=== PATIENT | male | born 1940 | race Caucasian/White ===

== ENCOUNTER 2018-02-24 13:53 | Inpatient (IN) ==
[2018-02-24] MEDS ORDERED: DEXTROSE 50% 25 GM/50 ML VIAL IV PRN (15:44)
[2018-02-24] MEDS ORDERED: GLUCAGON 1 MG VIAL IM PRN (15:44)
[2018-02-24 16:21] LABS: Basophils # 0.1 10*3/uL (0.0-0.2); Basophils % 1.3 % (0.0-0.8); Eosinophils # 0.5 10*3/uL (0.0-0.87); Eosinophils % 10.6 % (0.00-10.9); Hematocrit 31.4 VOL% (42.0-52.0); Hemoglobin 10.2 GM/DL (14.0-18.0); Immature Granulocytes % 0.7 %; Immature Granulocytes Absolute 0.03 #; Lymphocytes % 22.3 % (21.2-54.2); Mean Corpuscular HGB Conc 32.5 GM/DL (32-36); Mean Corpuscular Hemoglobin 30 PG (27-34); Mean Corpuscular Volume 91.3 FL (87-102); Mean Platelet Volume 9.6 FL (9.6-12.0); Monocytes # 0.5 10*3/uL (0.11-0.8); Monocytes % 10.2 % (1.7-12.7); Neutrophils # 2.5 10*3/uL (1.4-7.4); Neutrophils % 54.9 % (38.7-73.9); Platelet Count 152 T/CUMM (130-400); Red Blood Count 3.44 MC/CUMM (3.8-5.5); Red Cell Distribution Width 22.4 % (9.3-17.3); White Blood Count 4.5 T/CUMM (4-12)
[2018-02-24] MEDS ORDERED: CALCIUM CARBONATE CHEW 500 MG TABLET PO ONE ×2 (16:41→19:30)
[2018-02-24 16:58] LABS: Albumin 2.6 G/DL (3.4-5.0); Bilirubin,Total 0.4 MG/DL (0.2-1.0); Calcium 6.3 MG/DL (8.5-10.1); Potassium 4.4 MMOL/L (3.5-5.1); Total Protein 5.5 G/DL (6.4-8.3)
[2018-02-24 17:02] LABS: Anisocytosis 1+; Elliptocytes Few; Microcytosis Slight; Platelet Estimate Adequate
[2018-02-24] MEDS: PIPERACILLIN/TAZOBACTAM 3,375 MG in SODIUM CHLORIDE 0.9% 100 ML IV SCH ×2 (17:45→23:21)
[2018-02-24] MEDS: INSULIN REGULAR 100 UNIT/ML SUBCUT SCH (19:03)
[2018-02-25] MEDS: INSULIN REGULAR 100 UNIT/ML SUBCUT SCH ×4 (00:05→18:42)
[2018-02-25 06:34] LABS: Basophils # 0.1 10*3/uL (0.0-0.2); Basophils % 1.2 % (0.0-0.8); Eosinophils # 0.5 10*3/uL (0.0-0.87); Eosinophils % 12.4 % (0.00-10.9); Hematocrit 36.9 VOL% (42.0-52.0); Hemoglobin 11.9 GM/DL (14.0-18.0); Immature Granulocytes % 0.7 %; Immature Granulocytes Absolute 0.03 #; Lymphocytes # 1.2 10*3/uL (1.4-4.0); Lymphocytes % 27.1 % (21.2-54.2); Mean Corpuscular HGB Conc 32.2 GM/DL (32-36); Mean Corpuscular Hemoglobin 30 PG (27-34); Mean Corpuscular Volume 92.5 FL (87-102); Monocytes # 0.3 10*3/uL (0.11-0.8); Monocytes % 7.7 % (1.7-12.7); Neutrophils # 2.2 10*3/uL (1.4-7.4); Neutrophils % 50.9 % (38.7-73.9); Platelet Count 182 T/CUMM (130-400); Red Blood Count 3.99 MC/CUMM (3.8-5.5); Red Cell Distribution Width 22.7 % (9.3-17.3); White Blood Count 4.3 T/CUMM (4-12)
[2018-02-25] MEDS ORDERED: LIDOCAINE 1% 20 ML VIAL ONE (06:40)
[2018-02-25 07:00] LABS: Band Neutrophils 1 % (0-10); Eosinophils 18 % (0-10); Lymphocytes 24 % (20-55); Segmented Neutrophils 53 % (50-85); Total Cells Counted 100
[2018-02-25 07:01] LABS: Ovalocytes Slight; Platelet Estimate Normal
[2018-02-25 07:10] LABS: Albumin 2.7 G/DL (3.4-5.0); Bilirubin,Total 1.1 MG/DL (0.2-1.0); Calcium 6.9 MG/DL (8.5-10.1); Osmolality,Calculated 289.4 MOS/KG (273-304); Potassium 4.3 MMOL/L (3.5-5.1); Total Protein 5.7 G/DL (6.4-8.3)
[2018-02-25] MEDS ORDERED: DIPHENOXYLATE/ATROPINE 2.5-0.025 MG TABLET PO PRN (07:42)
[2018-02-25] MEDS ORDERED: PROPOFOL 200 MG/20 ML VIAL IV ONE (07:54)
[2018-02-25] MEDS ORDERED: MIDAZOLAM 2 MG/2 ML VIAL ONE (07:54)
[2018-02-25] MEDS ORDERED: fentaNYL 100 MCG/2 ML VIAL ONE (07:55)
[2018-02-25] MEDS ORDERED: DEXTROSE 50% 25 GM/50 ML VIAL IV PRN (08:15)
[2018-02-25] MEDS ORDERED: GLUCAGON 1 MG VIAL IM PRN (08:15)
[2018-02-25] MEDS ORDERED: CABOZANTINIB S MALATE 40 MG PO SCH (09:00)
[2018-02-25] MEDS ORDERED: COLCHICINE 0.6 MG TABLET PO PRN (09:00)
[2018-02-25] MEDS: PIPERACILLIN/TAZOBACTAM 3,375 MG in SODIUM CHLORIDE 0.9% 100 ML IV SCH ×2 (09:24→18:33)
[2018-02-25] MEDS: FUROSEMIDE 40 MG TABLET PO SCH (09:30)
[2018-02-25] MEDS: PANTOPRAZOLE 40 MG TABLET PO SCH (09:30)
[2018-02-25] MEDS: LEVOTHYROXINE 100 MCG TABLET PO SCH (09:30)
[2018-02-25] MEDS: TAMSULOSIN 0.4 MG CAPSULE PO SCH (09:31)
[2018-02-25] MEDS: CARVEDILOL 3.125 MG TABLET PO SCH ×2 (09:31→16:28)
[2018-02-25] MEDS: amLODIPine 5 MG TABLET PO SCH (09:31)
[2018-02-25] MEDS: CALCIUM CARBONATE CHEW 500 MG TABLET PO SCH ×2 (09:46→20:12)
[2018-02-25] MEDS ORDERED: MAGNESIUM SULF RIDER 4 GM in PREMIX 1 EACH IV PRN (11:46)
[2018-02-25] MEDS ORDERED: MAGNESIUM SULF RIDER 2 GM in PREMIX 1 EACH IV PRN (11:46)
[2018-02-25] MEDS: TRESIBA FLEX TOUCH PEN SUBCUT SCH (20:18)
[2018-02-25] MEDS ORDERED: TRESIBA FLEX TOUCH PEN SUBCUT SCH (21:00)
[2018-02-26] MEDS: PIPERACILLIN/TAZOBACTAM 3,375 MG in SODIUM CHLORIDE 0.9% 100 ML IV SCH ×3 (03:01→17:57)
[2018-02-26] MEDS: INSULIN REGULAR 100 UNIT/ML SUBCUT SCH ×4 (03:10→18:05)
[2018-02-26 06:04] LABS: Basophils # 0.1 10*3/uL (0.0-0.2); Basophils % 1.3 % (0.0-0.8); Eosinophils # 0.4 10*3/uL (0.0-0.87); Eosinophils % 11.6 % (0.00-10.9); Hematocrit 31.6 VOL% (42.0-52.0); Hemoglobin 10.3 GM/DL (14.0-18.0); Immature Granulocytes % 0.8 %; Immature Granulocytes Absolute 0.03 #; Lymphocytes # 0.8 10*3/uL (1.4-4.0); Lymphocytes % 20.6 % (21.2-54.2); Mean Corpuscular HGB Conc 32.6 GM/DL (32-36); Mean Corpuscular Hemoglobin 30 PG (27-34); Mean Corpuscular Volume 91.6 FL (87-102); Mean Platelet Volume 10.2 FL (9.6-12.0); Monocytes # 0.5 10*3/uL (0.11-0.8); Monocytes % 11.9 % (1.7-12.7); Neutrophils % 53.8 % (38.7-73.9); Platelet Count 159 T/CUMM (130-400); Red Blood Count 3.45 MC/CUMM (3.8-5.5); White Blood Count 3.8 T/CUMM (4-12)
[2018-02-26] MEDS: LEVOTHYROXINE 100 MCG TABLET PO SCH (06:32)
[2018-02-26 06:33] LABS: Calcium 7.1 MG/DL (8.5-10.1); Osmolality,Calculated 288.4 MOS/KG (273-304); Potassium 4.4 MMOL/L (3.5-5.1)
[2018-02-26 08:08] LABS: Band Neutrophils 2 % (0-10); Eosinophils 8 % (0-10); Lymphocytes 28 % (20-55); Ovalocytes Slight; Platelet Estimate Normal; Segmented Neutrophils 55 % (50-85); Total Cells Counted 100
[2018-02-26] MEDS: LIRAGLUTIDE SUBCUT SCH (08:57)
[2018-02-26] MEDS: amLODIPine 5 MG TABLET PO SCH (08:58)
[2018-02-26] MEDS: FUROSEMIDE 40 MG TABLET PO SCH (08:59)
[2018-02-26] MEDS: PANTOPRAZOLE 40 MG TABLET PO SCH (08:59)
[2018-02-26] MEDS: TAMSULOSIN 0.4 MG CAPSULE PO SCH (08:59)
[2018-02-26] MEDS: CALCIUM CARBONATE CHEW 500 MG TABLET PO SCH ×2 (08:59→21:08)
[2018-02-26] MEDS: CARVEDILOL 3.125 MG TABLET PO SCH ×2 (09:00→16:09)
[2018-02-26] MEDS: TRESIBA FLEX TOUCH PEN SUBCUT SCH (21:06)
[2018-02-27] MEDS: INSULIN REGULAR 100 UNIT/ML SUBCUT SCH ×4 (03:01→18:56)
[2018-02-27] MEDS: PIPERACILLIN/TAZOBACTAM 3,375 MG in SODIUM CHLORIDE 0.9% 100 ML IV SCH ×3 (03:58→21:08)
[2018-02-27 05:12] LABS: Eosinophils # 0.4 10*3/uL (0.0-0.87); Eosinophils % 13.4 % (0.00-10.9); Hematocrit 32.9 VOL% (42.0-52.0); Hemoglobin 10.6 GM/DL (14.0-18.0); Immature Granulocytes % 0.3 %; Immature Granulocytes Absolute 0.01 #; Lymphocytes # 0.6 10*3/uL (1.4-4.0); Lymphocytes % 20.9 % (21.2-54.2); Mean Corpuscular HGB Conc 32.2 GM/DL (32-36); Mean Corpuscular Hemoglobin 29 PG (27-34); Mean Corpuscular Volume 90.4 FL (87-102); Monocytes # 0.3 10*3/uL (0.11-0.8); Monocytes % 9.6 % (1.7-12.7); Neutrophils # 1.6 10*3/uL (1.4-7.4); Neutrophils % 54.8 % (38.7-73.9); Platelet Count 166 T/CUMM (130-400); Red Blood Count 3.64 MC/CUMM (3.8-5.5); Red Cell Distribution Width 22.9 % (9.3-17.3); White Blood Count 2.9 T/CUMM (4-12)
[2018-02-27 05:33] LABS: Calcium 7.3 MG/DL (8.5-10.1); Osmolality,Calculated 287.3 MOS/KG (273-304); Potassium 4.1 MMOL/L (3.5-5.1)
[2018-02-27] MEDS: LEVOTHYROXINE 100 MCG TABLET PO SCH (06:28)
[2018-02-27 07:04] LABS: Band Neutrophils 9 % (0-10); Eosinophils 7 % (0-10); Lymphocytes 27 % (20-55); Platelet Estimate Normal; Segmented Neutrophils 52 % (50-85); Total Cells Counted 100
[2018-02-27 07:05] LABS: Burr Cells Few
[2018-02-27] MEDS ORDERED: DOCUSATE SODIUM 100 MG CAPSULE PO PRN (08:56)
[2018-02-27] MEDS ORDERED: LACTULOSE 20 GM/30 ML UDCUP PO PRN (08:56)
[2018-02-27] MEDS: amLODIPine 5 MG TABLET PO SCH (10:21)
[2018-02-27] MEDS: CALCIUM CARBONATE CHEW 500 MG TABLET PO SCH ×2 (10:21→21:09)
[2018-02-27] MEDS: FUROSEMIDE 40 MG TABLET PO SCH (10:22)
[2018-02-27] MEDS: PANTOPRAZOLE 40 MG TABLET PO SCH (10:22)
[2018-02-27] MEDS: TAMSULOSIN 0.4 MG CAPSULE PO SCH (10:22)
[2018-02-27] MEDS: CARVEDILOL 3.125 MG TABLET PO SCH ×2 (10:22→16:22)
[2018-02-27] MEDS: LIRAGLUTIDE SUBCUT SCH (10:25)
[2018-02-27] MEDS: TRESIBA FLEX TOUCH PEN SUBCUT SCH (21:09)
[2018-02-28] MEDS: INSULIN REGULAR 100 UNIT/ML SUBCUT SCH ×4 (01:15→19:20)
[2018-02-28] MEDS: PIPERACILLIN/TAZOBACTAM 3,375 MG in SODIUM CHLORIDE 0.9% 100 ML IV SCH ×3 (05:00→21:22)
[2018-02-28] MEDS: LEVOTHYROXINE 100 MCG TABLET PO SCH (06:31)
[2018-02-28] MEDS: TAMSULOSIN 0.4 MG CAPSULE PO SCH (09:10)
[2018-02-28] MEDS: PANTOPRAZOLE 40 MG TABLET PO SCH (09:10)
[2018-02-28] MEDS: FUROSEMIDE 40 MG TABLET PO SCH (09:10)
[2018-02-28] MEDS: CARVEDILOL 3.125 MG TABLET PO SCH ×2 (09:10→20:36)
[2018-02-28] MEDS: amLODIPine 5 MG TABLET PO SCH (09:12)
[2018-02-28] MEDS: CALCIUM CARBONATE CHEW 500 MG TABLET PO SCH ×2 (09:12→20:36)
[2018-02-28] MEDS: LIRAGLUTIDE SUBCUT SCH (13:10)
[2018-02-28] MEDS: CLINDAMYCIN INJ 600 MG in PREMIX 1 EACH IV SCH ×2 (13:13→20:36)
[2018-02-28] MEDS: TRESIBA FLEX TOUCH PEN SUBCUT SCH (20:36)
[2018-03-01] MEDS: INSULIN REGULAR 100 UNIT/ML SUBCUT SCH ×3 (00:05→11:20)
[2018-03-01] MEDS: CLINDAMYCIN INJ 600 MG in PREMIX 1 EACH IV SCH (05:03)
[2018-03-01] MEDS: PIPERACILLIN/TAZOBACTAM 3,375 MG in SODIUM CHLORIDE 0.9% 100 ML IV SCH (05:36)
[2018-03-01] MEDS: LEVOTHYROXINE 100 MCG TABLET PO SCH (08:08)
[2018-03-01] MEDS: PANTOPRAZOLE 40 MG TABLET PO SCH (09:08)
[2018-03-01] MEDS: FUROSEMIDE 40 MG TABLET PO SCH (09:08)
[2018-03-01] MEDS: TAMSULOSIN 0.4 MG CAPSULE PO SCH (09:08)
[2018-03-01] MEDS: amLODIPine 5 MG TABLET PO SCH (09:09)
[2018-03-01] MEDS: CALCIUM CARBONATE CHEW 500 MG TABLET PO SCH (09:09)
[2018-03-01] MEDS: CARVEDILOL 3.125 MG TABLET PO SCH ×2 (09:10→17:16)
[2018-03-01] MEDS: LIRAGLUTIDE SUBCUT SCH ×2 (09:11→09:14)
[2018-03-01] MEDS ORDERED: LEVOFLOXACIN 500 MG TABLET PO SCH (13:30)
[2018-03-01] MEDS ORDERED: LEVOFLOXACIN INJ 500 MG in PREMIX 1 EACH IV ONE (14:54)
[2018-03-01 17:38] VITALS: BP 135/71
== END 2018-03-01 18:45 | disposition home health service (06) | DRG 623 ==
LOC: N.3E 14:45
PROVIDERS: ADMIT Surgery; ATTEND Surgery

== ENCOUNTER 2018-03-26 08:58 | Inpatient (IN) ==
[2018-03-26] MEDS ORDERED: SODIUM CHLORIDE 0.9% 500 ML IV STA (09:37)
[2018-03-26 09:48] LABS: Basophils # 0.1 10*3/uL (0.0-0.2); Basophils % 0.4 % (0.0-0.8); Eosinophils # 8.2 10*3/uL (0.0-0.87); Eosinophils % 37.5 % (0.00-10.9); Hematocrit 36.3 VOL% (42.0-52.0); Hemoglobin 11.9 GM/DL (14.0-18.0); Immature Granulocytes % 0.5 %; Immature Granulocytes Absolute 0.12 #; Lymphocytes % 4.3 % (21.2-54.2); Mean Corpuscular HGB Conc 32.8 GM/DL (32-36); Mean Corpuscular Hemoglobin 30 PG (27-34); Mean Corpuscular Volume 91.7 FL (87-102); Monocytes # 1.2 10*3/uL (0.11-0.8); Monocytes % 5.3 % (1.7-12.7); Neutrophils # 11.4 10*3/uL (1.4-7.4); Platelet Count 197 T/CUMM (130-400); Red Blood Count 3.96 MC/CUMM (3.8-5.5); Red Cell Distribution Width 17.6 % (9.3-17.3); White Blood Count 21.9 T/CUMM (4-12)
[2018-03-26 10:15] LABS: Albumin 2.3 G/DL (3.4-5.0); Bilirubin,Total 0.8 MG/DL (0.2-1.0); Calcium 8.4 MG/DL (8.5-10.1); Osmolality,Calculated 276.7 MOS/KG (273-304); Potassium 3.3 MMOL/L (3.5-5.1); Total Protein 5.1 G/DL (6.4-8.3)
[2018-03-26] MEDS ORDERED: SODIUM CHLORIDE 0.9% 1,000 ML IV STA (10:48)
[2018-03-26 11:20] LABS: Acanthocytes Few; Anisocytosis Slight; Band Neutrophils 10 % (0-10); Eosinophils 26 % (0-10); Lymphocytes 3 % (20-55); Poikilocytosis Slight; Segmented Neutrophils 59 % (50-85); Total Cells Counted 100
[2018-03-26 11:21] LABS: Ovalocytes Few; Platelet Estimate Adequate; Polychromasia Slight
[2018-03-26] MEDS ORDERED: KETOROLAC 30 MG/1 ML VIAL ONE (11:28)
[2018-03-26] MEDS ORDERED: KETOROLAC 30 MG/1 ML VIAL IV STA (11:33)
[2018-03-26] MEDS ORDERED: DEXTROSE 50% 25 GM/50 ML VIAL IV STA (12:03)
[2018-03-26] MEDS ORDERED: DEXTROSE 50% 25 GM/50 ML SYRINGE IV ONE (12:04)
[2018-03-26] MEDS ORDERED: SODIUM CHLORIDE 0.9% 2,000 ML IV STA (12:11)
[2018-03-26] MEDS ORDERED: LEVOFLOXACIN INJ 500 MG in PREMIX 1 EACH IV SCH (13:00)
[2018-03-26] MEDS ORDERED: ONDANSETRON 4 MG/2 ML VIAL IV PRN (13:29)
[2018-03-26] MEDS ORDERED: DIPHENOXYLATE/ATROPINE 2.5-0.025 MG TABLET PO PRN (13:29)
[2018-03-26] MEDS ORDERED: COLCHICINE 0.6 MG TABLET PO PRN (13:29)
[2018-03-26] MEDS ORDERED: ACETAMINOPHEN 325 MG TABLET PO PRN (13:29)
[2018-03-26] MEDS ORDERED: PHENYLEPHRINE DRIP 40 MG/250 ML PREMIX IV ONE (13:39)
[2018-03-26] MEDS: PHENYLEPHRINE DRIP 40 MG/250 ML PREMIX IV PRN ×3 (13:56→22:30)
[2018-03-26] MEDS: MEROPENEM 1,000 MG in SODIUM CHLORIDE 0.9% 100 ML IV SCH (14:14)
[2018-03-26] MEDS: DEXAMETHASONE 4 MG/1 ML VIAL IV SCH ×2 (14:16→20:54)
[2018-03-26] MEDS: SODIUM CHLORIDE 0.9% 1,000 ML IV SCH ×3 (14:17→20:53)
[2018-03-26] MEDS ORDERED: SODIUM CHLORIDE 0.9% 500 ML IV ONE (14:55)
[2018-03-26] MEDS: ENOXAPARIN 30 MG/0.3 ML SYRINGE SUBCUT SCH (15:00)
[2018-03-26] MEDS: ALLOPURINOL 300 MG TABLET PO SCH (15:00)
[2018-03-26] MEDS: POTASSIUM CHLORIDE 20 MEQ TABLET PO SCH ×3 (15:00→20:52)
[2018-03-26] MEDS: PANTOPRAZOLE 40 MG TABLET PO SCH (15:00)
[2018-03-26] MEDS: LEVOTHYROXINE 100 MCG TABLET PO SCH (15:00)
[2018-03-26] MEDS: MORPHINE 4 MG/1 ML VIAL IV PRN ×2 (15:04→19:12)
[2018-03-26] MEDS: SODIUM BICARBONATE 650 MG TABLET PO SCH (20:52)
[2018-03-26] MEDS ORDERED: INSULIN DEGLUDEC 25 UNIT SUBCUT SCH (21:00)
[2018-03-27] MEDS: SODIUM CHLORIDE 0.9% 1,000 ML IV SCH ×6 (02:16→22:58)
[2018-03-27] MEDS: PHENYLEPHRINE DRIP 40 MG/250 ML PREMIX IV PRN ×3 (02:22→12:21)
[2018-03-27] MEDS: MEROPENEM 1,000 MG in SODIUM CHLORIDE 0.9% 100 ML IV SCH ×2 (02:22→12:21)
[2018-03-27 04:24] LABS: Basophils # 0.1 10*3/uL (0.0-0.2); Basophils % 0.4 % (0.0-0.8); Eosinophils % 5.1 % (0.00-10.9); Hematocrit 29.7 VOL% (42.0-52.0); Hemoglobin 9.8 GM/DL (14.0-18.0); Immature Granulocytes % 2.3 %; Immature Granulocytes Absolute 0.45 #; Lymphocytes # 0.5 10*3/uL (1.4-4.0); Lymphocytes % 2.3 % (21.2-54.2); Mean Corpuscular Hemoglobin 30 PG (27-34); Mean Corpuscular Volume 91.4 FL (87-102); Mean Platelet Volume 10.1 FL (9.6-12.0); Monocytes # 1.1 10*3/uL (0.11-0.8); Monocytes % 5.4 % (1.7-12.7); Neutrophils # 16.6 10*3/uL (1.4-7.4); Neutrophils % 84.5 % (38.7-73.9); Platelet Count 195 T/CUMM (130-400); Red Blood Count 3.25 MC/CUMM (3.8-5.5); Red Cell Distribution Width 18.2 % (9.3-17.3); White Blood Count 19.6 T/CUMM (4-12)
[2018-03-27 04:54] LABS: Band Neutrophils 13 % (0-10); Eosinophils 5 % (0-10); Segmented Neutrophils 80 % (50-85); Total Cells Counted 100
[2018-03-27 04:55] LABS: Anisocytosis 1+; Ovalocytes Few; Platelet Estimate Adequate
[2018-03-27 05:10] LABS: Calcium 6.6 MG/DL (8.5-10.1); Osmolality,Calculated 284.5 MOS/KG (273-304); Potassium 4.4 MMOL/L (3.5-5.1)
[2018-03-27 05:11] LABS: Troponin I 0.116 NG/ML (0.00-0.045)
[2018-03-27] MEDS: DEXAMETHASONE 4 MG/1 ML VIAL IV SCH (06:10)
[2018-03-27] MEDS: LEVOTHYROXINE 100 MCG TABLET PO SCH (06:12)
[2018-03-27] MEDS ORDERED: MAGNESIUM SULF RIDER 2 GM in PREMIX 1 EACH IV ONE (06:30)
[2018-03-27] MEDS: MAGNESIUM SULF RIDER 2 GM in PREMIX 1 EACH IV PRN ×2 (07:15→09:27)
[2018-03-27] MEDS ORDERED: DEXTROSE 50% 25 GM/50 ML VIAL IV PRN (08:03)
[2018-03-27] MEDS ORDERED: GLUCAGON 1 MG VIAL IM PRN (08:03)
[2018-03-27] MEDS: PANTOPRAZOLE 40 MG TABLET PO SCH (09:28)
[2018-03-27] MEDS: ALLOPURINOL 300 MG TABLET PO SCH (09:29)
[2018-03-27] MEDS: HYDROCORTISONE 100 MG VIAL IV SCH ×2 (09:29→16:28)
[2018-03-27] MEDS: SODIUM BICARBONATE 650 MG TABLET PO SCH ×2 (09:29→21:21)
[2018-03-27] MEDS: INSULIN LISPRO 100 UNIT/ML SUBCUT SCH ×3 (12:21→21:21)
[2018-03-27] MEDS: ENOXAPARIN 30 MG/0.3 ML SYRINGE SUBCUT SCH (16:27)
[2018-03-28] MEDS: HYDROCORTISONE 100 MG VIAL IV SCH ×3 (00:23→17:24)
[2018-03-28] MEDS: PHENYLEPHRINE DRIP 40 MG/250 ML PREMIX IV PRN (00:23)
[2018-03-28] MEDS: MEROPENEM 1,000 MG in SODIUM CHLORIDE 0.9% 100 ML IV SCH (00:25)
[2018-03-28 05:01] LABS: Basophils # 0.1 10*3/uL (0.0-0.2); Basophils % 0.4 % (0.0-0.8); Eosinophils # 0.2 10*3/uL (0.0-0.87); Eosinophils % 1.2 % (0.00-10.9); Hematocrit 28.5 VOL% (42.0-52.0); Hemoglobin 9.6 GM/DL (14.0-18.0); Immature Granulocytes % 6.8 %; Immature Granulocytes Absolute 1.01 #; Lymphocytes # 0.3 10*3/uL (1.4-4.0); Lymphocytes % 2.3 % (21.2-54.2); Mean Corpuscular HGB Conc 33.7 GM/DL (32-36); Mean Corpuscular Hemoglobin 31 PG (27-34); Mean Corpuscular Volume 91.3 FL (87-102); Mean Platelet Volume 10.5 FL (9.6-12.0); Monocytes % 6.5 % (1.7-12.7); NRBC # 0.04 10*3/uL; Neutrophils # 12.4 10*3/uL (1.4-7.4); Neutrophils % 82.8 % (38.7-73.9); Platelet Count 176 T/CUMM (130-400); Red Blood Count 3.12 MC/CUMM (3.8-5.5); Red Cell Distribution Width 18.7 % (9.3-17.3); White Blood Count 14.9 T/CUMM (4-12)
[2018-03-28 05:26] LABS: Calcium 6.7 MG/DL (8.5-10.1); Osmolality,Calculated 297.8 MOS/KG (273-304); Potassium 4.5 MMOL/L (3.5-5.1); Troponin I 0.045 NG/ML (0.00-0.045)
[2018-03-28 05:56] LABS: Band Neutrophils 9 % (0-10); Lymphocytes 1 % (20-55); Segmented Neutrophils 85 % (50-85); Total Cells Counted 100
[2018-03-28 05:57] LABS: Burr Cells Slight; Hypochromasia 1+; Ovalocytes Slight; Platelet Estimate Adequate
[2018-03-28] MEDS: LEVOTHYROXINE 100 MCG TABLET PO SCH (06:21)
[2018-03-28] MEDS: SODIUM CHLORIDE 0.9% 1,000 ML IV SCH ×2 (08:40→20:35)
[2018-03-28] MEDS: INSULIN LISPRO 100 UNIT/ML SUBCUT SCH ×4 (09:23→20:33)
[2018-03-28] MEDS: ALLOPURINOL 300 MG TABLET PO SCH (09:24)
[2018-03-28] MEDS: PANTOPRAZOLE 40 MG TABLET PO SCH (09:24)
[2018-03-28] MEDS: SODIUM BICARBONATE 650 MG TABLET PO SCH ×2 (09:24→20:33)
[2018-03-28] MEDS: ENOXAPARIN 30 MG/0.3 ML SYRINGE SUBCUT SCH (15:34)
[2018-03-28] MEDS: TAMSULOSIN 0.4 MG CAPSULE PO SCH (17:25)
[2018-03-28] MEDS: INSULIN DEGLUDEC 25 UNIT SUBCUT SCH ×2 (20:41→20:49)
[2018-03-29] MEDS: HYDROCORTISONE 100 MG VIAL IV SCH ×3 (01:29→20:32)
[2018-03-29] MEDS: LEVOTHYROXINE 100 MCG TABLET PO SCH ×2 (06:13→10:05)
[2018-03-29] MEDS: SODIUM CHLORIDE 0.9% 1,000 ML IV SCH (06:21)
[2018-03-29 07:36] LABS: Calcium 6.3 MG/DL (8.5-10.1); Potassium 4.3 MMOL/L (3.5-5.1)
[2018-03-29] MEDS ORDERED: HYDROCORTISONE 10 MG TABLET PO SCH (09:00)
[2018-03-29] MEDS ORDERED: FUROSEMIDE 40 MG/4 ML VIAL IV ONE (09:05)
[2018-03-29] MEDS: INSULIN LISPRO 100 UNIT/ML SUBCUT SCH ×4 (09:18→20:34)
[2018-03-29] MEDS: CALCIUM (CARBONATE) 600 MG TABLET PO SCH ×2 (10:00→20:32)
[2018-03-29] MEDS: TAMSULOSIN 0.4 MG CAPSULE PO SCH (10:01)
[2018-03-29] MEDS: PANTOPRAZOLE 40 MG TABLET PO SCH (10:02)
[2018-03-29] MEDS: SODIUM BICARBONATE 650 MG TABLET PO SCH ×2 (10:02→20:31)
[2018-03-29] MEDS: ALLOPURINOL 300 MG TABLET PO SCH (10:03)
[2018-03-29] MEDS: LIRAGLUTIDE 0.6 MG/0.1 ML SUBCUT SCH (10:09)
[2018-03-29 15:57] LABS: Calcium 6.3 MG/DL (8.5-10.1); Osmolality,Calculated 309.8 MOS/KG (273-304); Potassium 3.4 MMOL/L (3.5-5.1)
[2018-03-29] MEDS ORDERED: MAGNESIUM SULF RIDER 2 GM in PREMIX 1 EACH IV ONE (16:09)
[2018-03-29] MEDS: POTASSIUM CHLORIDE 20 MEQ TABLET PO SCH ×2 (17:13→21:44)
[2018-03-29] MEDS: ENOXAPARIN 30 MG/0.3 ML SYRINGE SUBCUT SCH (17:13)
[2018-03-29] MEDS: ALBUMIN 25% 25 GM in PREMIX 1 EACH IV SCH ×2 (17:14→23:04)
[2018-03-29] MEDS: SODIUM BICARB INJ 150 MEQ in DEXTROSE 5% 850 ML IV SCH (17:14)
[2018-03-29] MEDS ORDERED: SODIUM BICARBONATE 650 MG TABLET PO SCH (21:00)
[2018-03-29] MEDS: INSULIN DEGLUDEC 25 UNIT SUBCUT SCH (21:24)
[2018-03-30 05:21] LABS: Basophils % 0.4 % (0.0-0.8); Eosinophils # 0.1 10*3/uL (0.0-0.87); Eosinophils % 0.5 % (0.00-10.9); Hematocrit 25.1 VOL% (42.0-52.0); Hemoglobin 8.3 GM/DL (14.0-18.0); Immature Granulocytes % 6.8 %; Immature Granulocytes Absolute 0.71 #; Lymphocytes # 0.7 10*3/uL (1.4-4.0); Lymphocytes % 6.2 % (21.2-54.2); Mean Corpuscular HGB Conc 33.1 GM/DL (32-36); Mean Corpuscular Hemoglobin 31 PG (27-34); Mean Corpuscular Volume 93.3 FL (87-102); Mean Platelet Volume 10.1 FL (9.6-12.0); Monocytes # 0.6 10*3/uL (0.11-0.8); Monocytes % 5.7 % (1.7-12.7); NRBC # 0.13 10*3/uL; Neutrophils # 8.4 10*3/uL (1.4-7.4); Neutrophils % 80.4 % (38.7-73.9); Platelet Count 144 T/CUMM (130-400); Red Blood Count 2.69 MC/CUMM (3.8-5.5); Red Cell Distribution Width 19.6 % (9.3-17.3); White Blood Count 10.4 T/CUMM (4-12)
[2018-03-30 05:56] LABS: Albumin 2.4 G/DL (3.4-5.0); Bilirubin,Total 0.6 MG/DL (0.2-1.0); Calcium 6.1 MG/DL (8.5-10.1); Osmolality,Calculated 311.4 MOS/KG (273-304); Potassium 3.7 MMOL/L (3.5-5.1); Total Protein 4.3 G/DL (6.4-8.3)
[2018-03-30] MEDS: LEVOTHYROXINE 100 MCG TABLET PO SCH (06:06)
[2018-03-30 06:12] LABS: Band Neutrophils 11 % (0-10); Hypochromasia 1+; Lymphocytes 6 % (20-55); Ovalocytes Slight; Platelet Estimate Adequate; Segmented Neutrophils 78 % (50-85); Total Cells Counted 100
[2018-03-30] MEDS: predniSONE 20 MG TABLET PO SCH (09:19)
[2018-03-30] MEDS: SODIUM BICARB INJ 150 MEQ in DEXTROSE 5% 850 ML IV SCH (09:19)
[2018-03-30] MEDS: ALBUMIN 25% 25 GM in PREMIX 1 EACH IV SCH ×3 (09:19→23:45)
[2018-03-30] MEDS: TAMSULOSIN 0.4 MG CAPSULE PO SCH (09:20)
[2018-03-30] MEDS: INSULIN LISPRO 100 UNIT/ML SUBCUT SCH ×4 (09:20→21:11)
[2018-03-30] MEDS: CALCIUM (CARBONATE) 600 MG TABLET PO SCH ×2 (09:20→21:08)
[2018-03-30] MEDS: ALLOPURINOL 300 MG TABLET PO SCH (09:21)
[2018-03-30] MEDS: LIRAGLUTIDE 0.6 MG/0.1 ML SUBCUT SCH (09:21)
[2018-03-30] MEDS: PANTOPRAZOLE 40 MG TABLET PO SCH (09:21)
[2018-03-30] MEDS ORDERED: CALCIUM GLUCONATE 1,000 MG in SODIUM CHLORIDE 0.9% 100 ML IV ONE (09:25)
[2018-03-30] MEDS: ENOXAPARIN 30 MG/0.3 ML SYRINGE SUBCUT SCH (14:41)
[2018-03-30] MEDS: CARVEDILOL 3.125 MG TABLET PO SCH (17:31)
[2018-03-30] MEDS ORDERED: ONDANSETRON 4 MG/2 ML VIAL IV PRN (19:13)
[2018-03-30] MEDS ORDERED: guaiFENesin 200 MG/10 ML UDCUP PO PRN (19:13)
[2018-03-30] MEDS ORDERED: MYLANTA/LIDO VISC 2:1 300 ML BOTTLE SWISH/SWAL PRN (19:13)
[2018-03-30] MEDS ORDERED: TEMAZEPAM 7.5 MG CAPSULE PO PRN (19:13)
[2018-03-30] MEDS ORDERED: ALUMINUM/MAGNES/SIMETH MAX STR 30 ML UDCUP PO PRN (19:13)
[2018-03-30] MEDS ORDERED: LOPERAMIDE 2 MG CAPSULE PO PRN ×2 (19:13)
[2018-03-30] MEDS ORDERED: LACTULOSE 20 GM/30 ML UDCUP PO PRN (19:13)
[2018-03-30] MEDS ORDERED: PROMETHAZINE INJ 25 MG in SODIUM CHLORIDE 0.9% 50 ML IV PRN (19:13)
[2018-03-30] MEDS ORDERED: MAGNESIUM HYDROXIDE SUSP 30 ML UDCUP PO PRN (19:13)
[2018-03-30] MEDS ORDERED: chlorproMAZINE 25 MG TABLET PO PRN (19:13)
[2018-03-30] MEDS ORDERED: chlorproMAZINE INJ 25 MG in SODIUM CHLORIDE 0.9% 100 ML IV PRN (19:13)
[2018-03-30] MEDS ORDERED: diphenhydrAMINE CAP 25 MG CAPSULE PO PRN (19:13)
[2018-03-30] MEDS ORDERED: MYLANTA/LIDO VISC 2:1 300 ML BOTTLE SWISH/SPIT PRN (19:13)
[2018-03-30] MEDS ORDERED: ACETAMINOPHEN 325 MG TABLET PO PRN (19:13)
[2018-03-30] MEDS ORDERED: ALPRAZolam 0.25 MG TABLET PO PRN (19:13)
[2018-03-30] MEDS ORDERED: chlorproMAZINE INJ 50 MG in SODIUM CHLORIDE 0.9% 100 ML IV PRN (19:13)
[2018-03-30] MEDS ORDERED: traMADol 50 MG TABLET PO PRN (19:13)
[2018-03-30] MEDS ORDERED: BENZTROPINE 2 MG/2 ML AMP IV PRN (19:13)
[2018-03-30] MEDS ORDERED: HYDROCORTISONE 1% CREAM 28 GM TUBE TOP PRN (19:22)
[2018-03-30] MEDS: INSULIN DEGLUDEC 25 UNIT SUBCUT SCH (21:08)
[2018-03-31 04:54] LABS: Basophils % 0.5 % (0.0-0.8); Eosinophils # 0.1 10*3/uL (0.0-0.87); Eosinophils % 0.7 % (0.00-10.9); Hematocrit 23.3 VOL% (42.0-52.0); Hemoglobin 7.6 GM/DL (14.0-18.0); Immature Granulocytes % 11.6 %; Immature Granulocytes Absolute 1.01 #; Lymphocytes # 0.7 10*3/uL (1.4-4.0); Mean Corpuscular HGB Conc 32.6 GM/DL (32-36); Mean Corpuscular Hemoglobin 30 PG (27-34); Mean Corpuscular Volume 91.7 FL (87-102); Mean Platelet Volume 10.3 FL (9.6-12.0); Monocytes # 0.6 10*3/uL (0.11-0.8); Monocytes % 7.2 % (1.7-12.7); NRBC # 0.15 10*3/uL; Neutrophils # 6.3 10*3/uL (1.4-7.4); Platelet Count 142 T/CUMM (130-400); Red Blood Count 2.54 MC/CUMM (3.8-5.5); Red Cell Distribution Width 19.7 % (9.3-17.3); White Blood Count 8.7 T/CUMM (4-12)
[2018-03-31 05:13] LABS: Calcium 6.7 MG/DL (8.5-10.1); Osmolality,Calculated 310.3 MOS/KG (273-304); Potassium 3.5 MMOL/L (3.5-5.1)
[2018-03-31 05:16] LABS: Anisocytosis 2+; Band Neutrophils 29 % (0-10); Lymphocytes 12 % (20-55); Platelet Estimate Adequate; Segmented Neutrophils 53 % (50-85); Total Cells Counted 100
[2018-03-31 05:17] LABS: Poikilocytosis 1+
[2018-03-31 05:18] LABS: Polychromasia Slight
[2018-03-31] MEDS: LEVOTHYROXINE 100 MCG TABLET PO SCH (06:42)
[2018-03-31] MEDS ORDERED: MAGNESIUM SULF RIDER 2 GM in PREMIX 1 EACH IV ONE (07:07)
[2018-03-31] MEDS ORDERED: SODIUM CHLORIDE 0.9% 1,000 ML IV PRN (07:39)
[2018-03-31] MEDS: CALCIUM (CARBONATE) 600 MG TABLET PO SCH (09:44)
[2018-03-31] MEDS: predniSONE 20 MG TABLET PO SCH (09:44)
[2018-03-31] MEDS: PANTOPRAZOLE 40 MG TABLET PO SCH (09:44)
[2018-03-31] MEDS: ALLOPURINOL 300 MG TABLET PO SCH (09:44)
[2018-03-31] MEDS: LIRAGLUTIDE 0.6 MG/0.1 ML SUBCUT SCH (09:44)
[2018-03-31] MEDS: TAMSULOSIN 0.4 MG CAPSULE PO SCH (09:44)
[2018-03-31] MEDS: INSULIN LISPRO 100 UNIT/ML SUBCUT SCH ×2 (09:45→12:26)
[2018-03-31] MEDS: ALBUMIN 25% 25 GM in PREMIX 1 EACH IV SCH (09:45)
[2018-03-31] MEDS: CARVEDILOL 3.125 MG TABLET PO SCH (09:46)
[2018-03-31] MEDS: ENOXAPARIN 30 MG/0.3 ML SYRINGE SUBCUT SCH (15:39)
[2018-03-31] MEDS ORDERED: HEPARIN LOCK FLUSH 500 UNIT/5 ML SYRINGE IV ONE (15:44)
[2018-03-31 15:46] VITALS: BP 157/78
== END 2018-03-31 15:50 | DRG 683 ==
LOC: EDBD → EDUNIT# → N.ED 08:58 → SUATTDRO 11:43 → N.EDINP 11:43 → N.ICU 12:50 → N.4E 03-28 15:44
PROVIDERS: ADMIT Internal Medicine; ATTEND Family Medicine

== ENCOUNTER 2018-08-15 19:05 | Inpatient (IN) ==
[2018-08-15] MEDS ORDERED: LABETALOL 20 MG/4 ML SYRINGE IV STA ×2 (19:33→21:03)
[2018-08-15] MEDS ORDERED: ONDANSETRON 4 MG/2 ML VIAL IV STA (19:33)
[2018-08-15 19:48] LABS: Basophils # 0.1 10*3/uL (0.0-0.2); Basophils % 1.1 % (0.0-0.8); Eosinophils # 0.8 10*3/uL (0.0-0.87); Eosinophils % 13.9 % (0.00-10.9); Hematocrit 39.5 VOL% (42.0-52.0); Hemoglobin 12.6 GM/DL (14.0-18.0); Immature Granulocytes % 0.4 %; Immature Granulocytes Absolute 0.02 #; Lymphocytes # 1.1 10*3/uL (1.4-4.0); Mean Corpuscular HGB Conc 31.9 GM/DL (32-36); Mean Corpuscular Hemoglobin 30 PG (27-34); Mean Corpuscular Volume 93.6 FL (87-102); Mean Platelet Volume 10.7 FL (9.6-12.0); Monocytes # 0.5 10*3/uL (0.11-0.8); Monocytes % 7.9 % (1.7-12.7); Neutrophils # 3.3 10*3/uL (1.4-7.4); Neutrophils % 57.7 % (38.7-73.9); Platelet Count 163 T/CUMM (130-400); Red Blood Count 4.22 MC/CUMM (3.8-5.5); Red Cell Distribution Width 15.4 % (9.3-17.3); White Blood Count 5.7 T/CUMM (4-12)
[2018-08-15 19:56] LABS: PT Patient Result 10.7 SECS; Partial Thromboplastin Time 30.1 SECS (0-40)
[2018-08-15 20:07] LABS: Troponin I 0.018 NG/ML (0.00-0.045)
[2018-08-15 20:09] LABS: Alanine Aminotransferase 29 U/L (16-61); Albumin 3.2 G/DL (3.4-5.0); Alkaline Phosphatase 69 U/L (45-117); Aspartate Amino Transferase 24 U/L (0-37); Blood Urea Nitrogen 26 MG/DL (7-18); Calcium 8.1 MG/DL (8.5-10.1); Glucose 152 MG/DL (74-106); Sodium 143 MMOL/L (136-145); Total Protein 5.9 G/DL (6.4-8.3)
[2018-08-15] MEDS ORDERED: MAGNESIUM SULF RIDER 2 GM in PREMIX 1 EACH IV STA (20:12)
[2018-08-15 20:18] LABS: Band Neutrophils 2 % (0-10); Eosinophils 11 % (0-10); Lymphocytes 21 % (20-55); Platelet Estimate Normal; Segmented Neutrophils 62 % (50-85); Total Cells Counted 100
[2018-08-15 20:33] LABS: Apearance,Urine Slightly Hazy (Clear); Bilirubin,Urine Negative (Negative); Blood, Urine Large mg/dL (Negative); Glucose,Urine (UA) Negative (Negative); Ketones,Urine Negative (Negative); Nitrite,Urine Negative (Negative); Protein,Urine >=500 MG/DL; RBC,Urine 2126 /HPF (0-4); Urine Color Yellow (Yellow); Urine Specific Gravity 1.012 (1.001-1.035); Urine Urobilinogen < 2.0 EU/DL (0.2-1.0)
[2018-08-15 20:45] LABS: Barbiturates Screen,Urine Negative (Negative); Benzodiazepines Screen,Urine Negative (Negative); Cannabinoid Screen,Urine Negative (Negative); Opiate Screen,Urine Negative (Negative); Phencyclidine Screen,Urine Negative (Negative)
[2018-08-15 20:56] LABS: Free T4 (Free Thyroxine) 1.21 NG/DL (0.76-1.46); Thyroid Stimulating Hormone 2.78 uIU/ml (0.358-3.74)
[2018-08-15] MEDS ORDERED: ONDANSETRON 4 MG/2 ML VIAL IV PRN (22:59)
[2018-08-15] MEDS ORDERED: hydrALAZINE 20 MG/1 ML VIAL IV PRN (22:59)
[2018-08-15] MEDS ORDERED: LABETALOL 20 MG/4 ML SYRINGE IV PRN (22:59)
[2018-08-15] MEDS ORDERED: MAGNESIUM SULF RIDER 2 GM in PREMIX 1 EACH IV ONE (22:59)
[2018-08-15] MEDS ORDERED: cloNIDine 0.1 MG/24 HR PATCH TRANSDERM SCH (22:59)
[2018-08-15] MEDS ORDERED: ALBUTEROL 2.5 MG/3 ML NEB RESP TX PRN (22:59)
[2018-08-15] MEDS ORDERED: niCARdipine INJ 25 MG in SODIUM CHLORIDE 0.9% 240 ML IV PRN (23:14)
[2018-08-15] MEDS: SODIUM CHLORIDE 0.45% 1,000 ML IV SCH (23:28)
[2018-08-15] MEDS: MORPHINE 4 MG/1 ML VIAL IV PRN (23:40)
[2018-08-16 05:15] LABS: Basophils # 0.1 10*3/uL (0.0-0.2); Eosinophils # 0.5 10*3/uL (0.0-0.87); Eosinophils % 7.6 % (0.00-10.9); Hematocrit 37.5 VOL% (42.0-52.0); Hemoglobin 11.9 GM/DL (14.0-18.0); Immature Granulocytes % 0.5 %; Immature Granulocytes Absolute 0.03 #; Lymphocytes # 1.2 10*3/uL (1.4-4.0); Lymphocytes % 19.5 % (21.2-54.2); Mean Corpuscular HGB Conc 31.7 GM/DL (32-36); Mean Corpuscular Hemoglobin 30 PG (27-34); Mean Corpuscular Volume 93.1 FL (87-102); Mean Platelet Volume 11.4 FL (9.6-12.0); Monocytes # 0.6 10*3/uL (0.11-0.8); Monocytes % 10.7 % (1.7-12.7); Neutrophils # 3.6 10*3/uL (1.4-7.4); Neutrophils % 60.7 % (38.7-73.9); Platelet Count 162 T/CUMM (130-400); Red Blood Count 4.03 MC/CUMM (3.8-5.5); Red Cell Distribution Width 15.3 % (9.3-17.3)
[2018-08-16 05:31] LABS: Albumin 2.9 G/DL (3.4-5.0); Bilirubin,Total 0.7 MG/DL (0.2-1.0); Calcium 7.8 MG/DL (8.5-10.1); Osmolality,Calculated 289.1 MOS/KG (273-304); Potassium 3.4 MMOL/L (3.5-5.1); Risk Ratio 2.4; Total Protein 5.2 G/DL (6.4-8.3); VLDL CHOLESTEROL 19.2 MG/DL
[2018-08-16] MEDS: POTASSIUM CHLORIDE RIDER 10 MEQ in PREMIX 1 EACH IV PRN ×3 (05:58→08:10)
[2018-08-16] MEDS ORDERED: PANTOPRAZOLE 40 MG VIAL IV SCH (09:00)
[2018-08-16] MEDS ORDERED: amLODIPine 5 MG TABLET PO SCH (11:00)
[2018-08-16] MEDS ORDERED: LIDOCAINE 2% TOP JELLY 20 ML VIAL INTRAURETH ONE (13:55)
[2018-08-16] MEDS ORDERED: MORPHINE 10 MG/1 ML VIAL IV ONE ×3 (13:58→14:00)
[2018-08-16] MEDS: CARVEDILOL 3.125 MG TABLET PO SCH (16:06)
[2018-08-16] MEDS: SODIUM CHLORIDE 0.45% 1,000 ML IV SCH (16:14)
[2018-08-16 20:00] LABS: Folate 19.4 NG/ML (5.4-24.0)
[2018-08-16] MEDS: cloNIDine 0.1 MG TABLET PO PRN (20:50)
[2018-08-16] MEDS ORDERED: TAMSULOSIN 0.4 MG CAPSULE PO SCH (21:00)
[2018-08-17 05:39] LABS: Basophils # 0.1 10*3/uL (0.0-0.2); Basophils % 1.3 % (0.0-0.8); Eosinophils % 17.4 % (0.00-10.9); Hematocrit 34.5 VOL% (42.0-52.0); Hemoglobin 10.7 GM/DL (14.0-18.0); Immature Granulocytes % 0.2 %; Immature Granulocytes Absolute 0.01 #; Lymphocytes % 17.8 % (21.2-54.2); Mean Corpuscular Hemoglobin 30 PG (27-34); Mean Corpuscular Volume 95.8 FL (87-102); Mean Platelet Volume 10.9 FL (9.6-12.0); Monocytes # 0.6 10*3/uL (0.11-0.8); Monocytes % 10.8 % (1.7-12.7); Neutrophils # 2.9 10*3/uL (1.4-7.4); Neutrophils % 52.5 % (38.7-73.9); Platelet Count 136 T/CUMM (130-400); Red Cell Distribution Width 15.4 % (9.3-17.3); White Blood Count 5.6 T/CUMM (4-12)
[2018-08-17 05:55] LABS: Osmolality,Calculated 278.7 MOS/KG (273-304); Potassium 3.8 MMOL/L (3.5-5.1)
[2018-08-17 06:13] LABS: Band Neutrophils 1 % (0-10); Eosinophils 21 % (0-10); Lymphocytes 18 % (20-55); Segmented Neutrophils 58 % (50-85); Total Cells Counted 100
[2018-08-17 06:14] LABS: Hypochromasia 1+; Ovalocytes Slight; Platelet Estimate Normal
[2018-08-17] MEDS: amLODIPine 10 MG TABLET PO SCH (08:39)
[2018-08-17] MEDS: CARVEDILOL 3.125 MG TABLET PO SCH (08:39)
[2018-08-17] MEDS ORDERED: FINASTERIDE 5 MG TABLET PO SCH (09:00)
[2018-08-17 10:28] LABS: Lymphocytes,CSF 55 %; Monocytes,CSF 29 %; Neutrophils,CSF 16 %; Red Blood Cell,CSF < 1 C/CUMM; White Blood Cell,CSF 20 C/CUMM
[2018-08-17 10:29] LABS: Appearance,CSF Clear
[2018-08-17 10:45] LABS: Glucose,CSF 58 MG/DL (40-70)
[2018-08-17] MEDS: SODIUM CHLORIDE 0.45% 1,000 ML IV SCH (12:14)
[2018-08-17] MEDS ORDERED: DIPHENOXYLATE/ATROPINE 2.5-0.025 MG TABLET PO PRN (14:09)
[2018-08-17] MEDS: TAMSULOSIN 0.4 MG CAPSULE PO SCH (15:33)
[2018-08-17] MEDS: NEBIVOLOL 5 MG TABLET PO SCH (20:56)
[2018-08-17] MEDS: SODIUM BICARBONATE 650 MG TABLET PO SCH (20:56)
[2018-08-17] MEDS: SIMVASTATIN 40 MG TABLET PO SCH (20:56)
[2018-08-18 04:06] LABS: Osmolality,Calculated 278.7 MOS/KG (273-304); Potassium 3.9 MMOL/L (3.5-5.1)
[2018-08-18] MEDS: LEVOTHYROXINE 125 MCG TABLET PO SCH (06:26)
[2018-08-18] MEDS: NEBIVOLOL 5 MG TABLET PO SCH ×2 (08:54→21:35)
[2018-08-18] MEDS: LORATADINE 10 MG TABLET PO SCH (08:54)
[2018-08-18] MEDS: FINASTERIDE 5 MG TABLET PO SCH (08:55)
[2018-08-18] MEDS: amLODIPine 10 MG TABLET PO SCH (08:55)
[2018-08-18] MEDS: TAMSULOSIN 0.4 MG CAPSULE PO SCH (08:55)
[2018-08-18] MEDS: SODIUM BICARBONATE 650 MG TABLET PO SCH ×2 (08:56→21:35)
[2018-08-18] MEDS ORDERED: HEPARIN LOCK FLUSH 500 UNIT/5 ML SYRINGE IV PRN (10:05)
[2018-08-18] MEDS: HEPARIN LOCK FLUSH 500 UNIT/5 ML SYRINGE IV SCH ×2 (11:16→21:37)
[2018-08-18] MEDS: SODIUM CHLORIDE 0.45% 1,000 ML IV SCH (14:35)
[2018-08-18] MEDS: SIMVASTATIN 40 MG TABLET PO SCH (21:35)
[2018-08-18] MEDS: cloNIDine 0.1 MG TABLET PO PRN (21:44)
[2018-08-19] MEDS: LEVOTHYROXINE 125 MCG TABLET PO SCH (06:10)
[2018-08-19] MEDS: MORPHINE 4 MG/1 ML VIAL IV PRN (06:42)
[2018-08-19 09:26] LABS: Apearance,Urine CLEAR (Clear); Bilirubin,Urine Negative (Negative); Blood, Urine Large mg/dL (Negative); Glucose,Urine (UA) Negative (Negative); Ketones,Urine 5 mg/dL (Negative); Nitrite,Urine Negative (Negative); Protein,Urine 100 MG/DL; RBC,Urine 704 /HPF (0-4); Urine Color Yellow (Yellow); Urine Specific Gravity 1.011 (1.001-1.035); Urine Urobilinogen < 2.0 EU/DL (0.2-1.0)
[2018-08-19] MEDS: NEBIVOLOL 5 MG TABLET PO SCH (09:48)
[2018-08-19] MEDS: FINASTERIDE 5 MG TABLET PO SCH (09:48)
[2018-08-19] MEDS: TAMSULOSIN 0.4 MG CAPSULE PO SCH (09:48)
[2018-08-19] MEDS: LORATADINE 10 MG TABLET PO SCH (09:49)
[2018-08-19] MEDS: SODIUM BICARBONATE 650 MG TABLET PO SCH (09:49)
[2018-08-19] MEDS: amLODIPine 10 MG TABLET PO SCH (09:49)
[2018-08-19] MEDS: HEPARIN LOCK FLUSH 500 UNIT/5 ML SYRINGE IV SCH (10:11)
[2018-08-19 11:37] VITALS: BP 126/93
[2018-08-19 11:40] LABS: VDRL Spinal Fluid Negative (Negative)
[2018-08-19] MEDS ORDERED: APIXABAN 2.5 MG TABLET PO SCH (21:00)
[2018-08-23 11:21] LABS: ACh Receptor (Muscle) Binding 0 nmol/L (<=0.02); AChR Ganglionic Neuronal Ab, S 0 nmol/L (<=0.02); CRMP-5-IgG, S Negative titer (<1:240); Striational (Striated Muscle) Negative titer (<1:120)
== END 2018-08-19 15:04 | disposition home health service (06) | DRG 305 ==
LOC: N.ED 19:05 → SUATTDRO 21:19 → N.EDINP 21:19 → N.CC 21:47 → N.2E 08-16 15:53
PROVIDERS: ADMIT Internal Medicine; ATTEND Internal Medicine Cardiovascular Disease

== ENCOUNTER 2020-05-12 09:57 | Inpatient (IN) ==
[2020-05-12] MEDS ORDERED: SODIUM CHLORIDE 0.9% 500 ML IV STA ×3 (10:11→11:34)
[2020-05-12 10:22] LABS: Basophils % 1.4 % (0.0-0.8); Eosinophils # 0.6 10*3/uL (0.0-0.87); Eosinophils % 20.8 % (0.00-10.9); Hematocrit 31.7 VOL% (42.0-52.0); Immature Granulocytes % 1.4 %; Immature Granulocytes Absolute 0.04 #; Lymphocytes # 0.4 10*3/uL (1.4-4.0); Lymphocytes % 15.1 % (21.2-54.2); Mean Corpuscular HGB Conc 31.5 GM/DL (32-36); Mean Corpuscular Volume 93.2 FL (87-102); Mean Platelet Volume 10.2 FL (9.6-12.0); NRBC # 0.07 10*3/uL; Neutrophils % 55.3 % (38.7-73.9); Platelet Count 213 T/CUMM (130-400); Red Cell Distribution Width 19.1 % (9.3-17.3); White Blood Count 2.8 T/CUMM (4-12)
[2020-05-12] MEDS ORDERED: ATROPINE 1 MG/10 ML SYRINGE IV STA (10:31)
[2020-05-12] MEDS ORDERED: EPINEPHrine 1 MG/10 ML SYRINGE IV STA (10:31)
[2020-05-12 10:37] LABS: INR 1.6; PT Patient Result 16.7 SECS (9.8-11.9)
[2020-05-12 10:42] LABS: ABG Base Excess -22.3 MMOL/L (-2.5-2.5); ABG HCO3 8.4 MMOL/L (20-26); ABG Oxygen Saturation 92.1 % (95-100); ABG PO2 79.9 MM HG (80-95)
[2020-05-12 10:45] LABS: ABG PCO2 14.7 MM HG (35-48); ABG PH 7.168 (7.35-7.45)
[2020-05-12 10:57] LABS: Alanine Aminotransferase 78 U/L (16-61); Albumin 1.9 G/DL (3.4-5.0); Alkaline Phosphatase 103 U/L (45-117); Aspartate Amino Transferase 66 U/L (0-37); Bilirubin,Total < 0.39 MG/DL (0.2-1.0); Blood Urea Nitrogen 70 MG/DL (7-18); CKMB % 10.1 %; Calcium 7.7 MG/DL (8.5-10.1); Carbon Dioxide 6 MMOL/L (21-32); Estimated Glom Filtration Rate 24 ML/MIN; Glucose 79 MG/DL (74-106); Osmolality,Calculated 307.7 MOS/KG (273-304); Potassium 4.1 MMOL/L (3.5-5.1); Sodium 145 MMOL/L (136-145); Total Protein 5.1 G/DL (6.4-8.3); Troponin I < 0.015 NG/ML (0.00-0.045)
[2020-05-12] MEDS: DOPamine 800 MG/250 ML PREMIX IV PRN ×2 (11:00→21:50)
[2020-05-12] MEDS ORDERED: VANCOMYCIN INJ 1,000 MG in SODIUM CHLORIDE 0.9% 250 ML IV STA (11:33)
[2020-05-12] MEDS ORDERED: PIPERACILLIN/TAZOBACTAM 3,375 MG in SODIUM CHLORIDE 0.9% 100 ML IV STA (11:33)
[2020-05-12 11:59] LABS: Band Neutrophils 8 % (0-10); Eosinophils 20 % (0-10); Hypochromasia 1+; Lymphocytes 15 % (20-55); Metamyelocytes 1 %; Microcytosis 1+; Myelocytes 1 %; Nucleated Red Blood Cells 3 (0-5); Segmented Neutrophils 43 % (50-85); Total Cells Counted 100
[2020-05-12 12:00] LABS: Acanthocytes Few; Burr Cells Slight
[2020-05-12 12:01] LABS: Ovalocytes Slight; Platelet Estimate Normal
[2020-05-12 12:46] LABS: Bacteria,Urine Occasional /HPF (Few); Bilirubin,Urine Negative (Negative); Blood, Urine Negative (Negative); Glucose,Urine (UA) Negative (Negative); Hyaline Casts,Urine 12 /LPF (0-3); Ketones,Urine Negative (Negative); Mucus,Urine Occasional /LPF (Occasional); Nitrite,Urine Negative (Negative); Protein,Urine 100 MG/DL; RBC,Urine 1 /HPF (0-4); Squamous Epithelial Cell,Urine Occasional /HPF (0-10); Urine Appearance Slightly Hazy (Clear); Urine Color Yellow (Yellow); Urine Specific Gravity 1.019 (1.001-1.035); Urine Urobilinogen < 2.0 EU/DL (0.2-1.0); WBC,Urine 3 /HPF (0-6)
[2020-05-12] MEDS ORDERED: LACTATED RINGERS 2,000 ML IV ONE (13:10)
[2020-05-12] MEDS ORDERED: SODIUM BICARBONATE 50 MEQ/50 ML VIAL IV STA (13:14)
[2020-05-12] MEDS ORDERED: LACTATED RINGERS 1,000 ML IV ONE (13:15)
[2020-05-12] MEDS ORDERED: MAGNESIUM SULF RIDER 2 GM in PREMIX 1 EACH IV ONE ×2 (13:30→18:52)
[2020-05-12] MEDS: HYDROCORTISONE 100 MG VIAL IV SCH ×2 (14:38→21:21)
[2020-05-12] MEDS: PANTOPRAZOLE 40 MG VIAL IV SCH ×2 (14:38→21:20)
[2020-05-12] MEDS: LACTATED RINGERS 1,000 ML IV SCH (17:01)
[2020-05-12] MEDS: MEROPENEM 500 MG in SODIUM CHLORIDE 0.9% 100 ML IV SCH (18:11)
[2020-05-12 18:35] LABS: Calcium 7.6 MG/DL (8.5-10.1); Osmolality,Calculated 308.7 MOS/KG (273-304); Potassium 4.3 MMOL/L (3.5-5.1)
[2020-05-12 18:35] LABS: ABG Base Excess -19.6 MMOL/L (-2.5-2.5); ABG PO2 146.8 MM HG (80-95); ABG TCO2 7.6 MMOL/L (23-27)
[2020-05-12 18:37] LABS: ABG PCO2 20.1 MM HG (35-48)
[2020-05-12 18:38] LABS: ABG PH 7.161 (7.35-7.45)
[2020-05-12] MEDS ORDERED: SODIUM BICARBONATE 50 MEQ/50 ML VIAL IV ONE (18:51)
[2020-05-12] MEDS ORDERED: HYDROCORTISONE 100 MG VIAL IV SCH (20:00)
[2020-05-13] MEDS: HYDROCORTISONE 100 MG VIAL IV SCH ×4 (02:08→20:12)
[2020-05-13] MEDS: MEROPENEM 500 MG in SODIUM CHLORIDE 0.9% 100 ML IV SCH ×3 (02:08→21:15)
[2020-05-13 02:36] LABS: ABG Base Excess -21.2 MMOL/L (-2.5-2.5); ABG HCO3 9.1 MMOL/L (20-26); ABG Oxygen Saturation 98.3 % (95-100); ABG TCO2 4.6 MMOL/L (23-27)
[2020-05-13 02:38] LABS: ABG PCO2 10.8 MM HG (35-48)
[2020-05-13] MEDS ORDERED: SODIUM BICARBONATE 50 MEQ/50 ML VIAL IV ONE ×2 (02:48→16:34)
[2020-05-13] MEDS: LACTATED RINGERS 1,000 ML IV SCH ×2 (02:50→07:00)
[2020-05-13 05:10] LABS: Albumin 1.9 G/DL (3.4-5.0); Bilirubin,Total 0.8 MG/DL (0.2-1.0); Calcium 7.8 MG/DL (8.5-10.1); Osmolality,Calculated 318.1 MOS/KG (273-304); Total Protein 5.1 G/DL (6.4-8.3)
[2020-05-13 05:12] LABS: Troponin I 1.24 NG/ML (0.00-0.045)
[2020-05-13] MEDS: LEVOTHYROXINE 125 MCG TABLET PO SCH (05:44)
[2020-05-13 06:13] LABS: ABG HCO3 9.7 MMOL/L (20-26); ABG Oxygen Saturation 98.5 % (95-100); ABG PH 7.332 (7.35-7.45); ABG TCO2 4.9 MMOL/L (23-27)
[2020-05-13 06:14] LABS: ABG PCO2 9.9 MM HG (35-48)
[2020-05-13] MEDS ORDERED: APIXABAN 5 MG TABLET PO SCH (09:00)
[2020-05-13] MEDS: ENOXAPARIN 100 MG/ML SYRINGE SUBCUT SCH (09:09)
[2020-05-13] MEDS: PANTOPRAZOLE 40 MG VIAL IV SCH ×2 (09:10→20:09)
[2020-05-13] MEDS: MEGESTROL ES 125 MG/ML 30 ML/BOTTLE PO SCH (09:11)
[2020-05-13 09:19] LABS: Troponin I 1.07 NG/ML (0.00-0.045)
[2020-05-13] MEDS: SODIUM BICARB INJ 150 MEQ in STERILE WATER INJ 850 ML IV SCH ×2 (09:19→16:41)
[2020-05-13 13:44] LABS: Troponin I 1.01 NG/ML (0.00-0.045)
[2020-05-13 16:26] LABS: Calcium 7.6 MG/DL (8.5-10.1); Osmolality,Calculated 324.9 MOS/KG (273-304); Potassium 4.4 MMOL/L (3.5-5.1)
[2020-05-13 16:31] LABS: Troponin I 0.943 NG/ML (0.00-0.045)
[2020-05-13] MEDS: DOPamine 800 MG/250 ML PREMIX IV PRN (16:40)
[2020-05-13 17:56] LABS: Acetaminophen 4.6 UG/ML (10-30); Salicylate < 2.8 MG/DL (2.8-20)
[2020-05-13 19:00] LABS: Barbiturates Screen,Urine Negative (Negative); Benzodiazepines Screen,Urine Negative (Negative); Cannabinoid Screen,Urine Negative (Negative); Opiate Screen,Urine Negative (Negative); Phencyclidine Screen,Urine Negative (Negative)
[2020-05-14] MEDS ORDERED: GLUCAGON 1 MG VIAL IM PRN
[2020-05-14] MEDS ORDERED: DEXTROSE 50% 25 GM/50 ML VIAL IV PRN
[2020-05-14] MEDS: INSULIN LISPRO 100 UNIT/ML SUBCUT SCH ×5 (01:19→23:19)
[2020-05-14] MEDS: SODIUM BICARB INJ 150 MEQ in STERILE WATER INJ 850 ML IV SCH ×3 (01:23→11:41)
[2020-05-14] MEDS: HYDROCORTISONE 100 MG VIAL IV SCH ×4 (01:25→18:09)
[2020-05-14 04:46] LABS: Basophils # 0.1 10*3/uL (0.0-0.2); Basophils % 0.5 % (0.0-0.8); Eosinophils % 0.1 % (0.00-10.9); Hematocrit 26.1 VOL% (42.0-52.0); Hemoglobin 8.5 GM/DL (14.0-18.0); Immature Granulocytes % 8.6 %; Immature Granulocytes Absolute 1.91 #; Lymphocytes # 0.7 10*3/uL (1.4-4.0); Mean Corpuscular HGB Conc 32.6 GM/DL (32-36); Mean Corpuscular Volume 90.3 FL (87-102); Mean Platelet Volume 10.1 FL (9.6-12.0); Monocytes % 5.1 % (1.7-12.7); NRBC # 0.16 10*3/uL; Neutrophils % 82.7 % (38.7-73.9); Platelet Count 243 T/CUMM (130-400); Red Blood Count 2.89 MC/CUMM (3.8-5.5); Red Cell Distribution Width 19.4 % (9.3-17.3); White Blood Count 22.1 T/CUMM (4-12)
[2020-05-14 05:11] LABS: Calcium 7.6 MG/DL (8.5-10.1); Osmolality,Calculated 328.9 MOS/KG (273-304); Potassium 3.7 MMOL/L (3.5-5.1)
[2020-05-14 05:14] LABS: Albumin 1.8 G/DL (3.4-5.0); Band Neutrophils 13 % (0-10); Bilirubin,Total 0.5 MG/DL (0.2-1.0); Calcium 7.8 MG/DL (8.5-10.1); Eosinophils 1 % (0-10); Hypochromasia 1+; Lymphocytes 4 % (20-55); Metamyelocytes 2 %; Myelocytes 1 %; Osmolality,Calculated 327.9 MOS/KG (273-304); Potassium 3.7 MMOL/L (3.5-5.1); Segmented Neutrophils 74 % (50-85); Total Cells Counted 100; Total Protein 5.1 G/DL (6.4-8.3)
[2020-05-14 05:15] LABS: Microcytosis 1+; Ovalocytes Slight
[2020-05-14 05:17] LABS: Platelet Estimate Normal
[2020-05-14] MEDS: LEVOTHYROXINE 125 MCG TABLET PO SCH (06:19)
[2020-05-14] MEDS: PANTOPRAZOLE 40 MG VIAL IV SCH ×2 (08:01→20:51)
[2020-05-14] MEDS: ENOXAPARIN 100 MG/ML SYRINGE SUBCUT SCH (08:01)
[2020-05-14] MEDS: MEGESTROL ES 125 MG/ML 30 ML/BOTTLE PO SCH (08:01)
[2020-05-14] MEDS: MEROPENEM 500 MG in SODIUM CHLORIDE 0.9% 100 ML IV SCH ×2 (08:01→20:51)
[2020-05-14] MEDS: SODIUM CHLORIDE 0.45% 1,000 ML IV SCH (11:47)
[2020-05-14] MEDS ORDERED: OXYMETAZOLINE 0.05% NASAL SPRAY 15 ML BOTTLE BOTH NARES PRN (16:07)
[2020-05-15] MEDS: HYDROCORTISONE 100 MG VIAL IV SCH ×3 (01:28→17:54)
[2020-05-15] MEDS: INSULIN LISPRO 100 UNIT/ML SUBCUT SCH ×4 (05:30→23:58)
[2020-05-15] MEDS: LEVOTHYROXINE 125 MCG TABLET PO SCH (05:30)
[2020-05-15 05:47] LABS: Basophils # 0.1 10*3/uL (0.0-0.2); Basophils % 0.4 % (0.0-0.8); Hematocrit 24.7 VOL% (42.0-52.0); Immature Granulocytes % 10.9 %; Immature Granulocytes Absolute 2.39 #; Lymphocytes # 0.4 10*3/uL (1.4-4.0); Lymphocytes % 1.8 % (21.2-54.2); Mean Corpuscular HGB Conc 32.4 GM/DL (32-36); Mean Corpuscular Volume 89.5 FL (87-102); Mean Platelet Volume 10.7 FL (9.6-12.0); Monocytes % 5.3 % (1.7-12.7); Neutrophils % 81.6 % (38.7-73.9); Platelet Count 235 T/CUMM (130-400); Red Blood Count 2.76 MC/CUMM (3.8-5.5); Red Cell Distribution Width 19.8 % (9.3-17.3)
[2020-05-15] MEDS: SODIUM CHLORIDE 0.45% 1,000 ML IV SCH ×2 (06:11→08:58)
[2020-05-15 06:18] LABS: Band Neutrophils 7 % (0-10); Hypochromasia 2+; Lymphocytes 4 % (20-55); Microcytosis 1+; Nucleated Red Blood Cells 1 (0-5); Ovalocytes Slight; Platelet Estimate Adequate; Segmented Neutrophils 84 % (50-85); Total Cells Counted 100
[2020-05-15 06:21] LABS: Isopropanol Serum Not Detected; Methanol Serum Not Detected
[2020-05-15 06:22] LABS: Albumin 1.6 G/DL (3.4-5.0); Bilirubin,Total 0.4 MG/DL (0.2-1.0); Calcium 7.6 MG/DL (8.5-10.1); Osmolality,Calculated 335.7 MOS/KG (273-304); Potassium 3.4 MMOL/L (3.5-5.1); Total Protein 4.6 G/DL (6.4-8.3)
[2020-05-15] MEDS ORDERED: SODIUM CHLORIDE 0.9% 1,000 ML IV PRN (07:55)
[2020-05-15] MEDS: MEROPENEM 500 MG in SODIUM CHLORIDE 0.9% 100 ML IV SCH ×2 (08:57→21:09)
[2020-05-15] MEDS: PANTOPRAZOLE 40 MG VIAL IV SCH ×2 (08:57→21:10)
[2020-05-15] MEDS: MEGESTROL ES 125 MG/ML 30 ML/BOTTLE PO SCH (08:57)
[2020-05-15] MEDS: ENOXAPARIN 100 MG/ML SYRINGE SUBCUT SCH (08:57)
[2020-05-15] MEDS ORDERED: POTASSIUM CHLORIDE 20 MEQ/15 ML UDCUP PER TUBE ONE (10:00)
[2020-05-16] MEDS: HYDROCORTISONE 100 MG VIAL IV SCH ×2 (02:43→17:19)
[2020-05-16 04:35] LABS: Basophils # 0.2 10*3/uL (0.0-0.2); Basophils % 0.8 % (0.0-0.8); Eosinophils % 0.1 % (0.00-10.9); Hematocrit 28.8 VOL% (42.0-52.0); Hemoglobin 9.4 GM/DL (14.0-18.0); Immature Granulocytes Absolute 2.94 #; Lymphocytes # 0.7 10*3/uL (1.4-4.0); Mean Corpuscular HGB Conc 32.6 GM/DL (32-36); Mean Platelet Volume 10.3 FL (9.6-12.0); Monocytes % 4.9 % (1.7-12.7); NRBC # 0.17 10*3/uL; Neutrophils % 78.2 % (38.7-73.9); Platelet Count 187 T/CUMM (130-400); White Blood Count 22.6 T/CUMM (4-12)
[2020-05-16 04:54] LABS: Alanine Aminotransferase 55 U/L (16-61); Albumin 1.6 G/DL (3.4-5.0); Alkaline Phosphatase 105 U/L (45-117); Aspartate Amino Transferase 35 U/L (0-37); Bilirubin,Total < 0.39 MG/DL (0.2-1.0); Blood Urea Nitrogen 87 MG/DL (7-18); Calcium 7.4 MG/DL (8.5-10.1); Carbon Dioxide 25 MMOL/L (21-32); Estimated Glom Filtration Rate 26 ML/MIN; Glucose 261 MG/DL (74-106); Osmolality,Calculated 340.4 MOS/KG (273-304); Potassium 3.3 MMOL/L (3.5-5.1); Sodium 154 MMOL/L (136-145); Total Protein 4.4 G/DL (6.4-8.3)
[2020-05-16 05:00] LABS: Band Neutrophils 5 % (0-10); Hypochromasia 1+; Lymphocytes 4 % (20-55); Microcytosis 1+; Platelet Estimate Adequate; Segmented Neutrophils 89 % (50-85); Total Cells Counted 100
[2020-05-16] MEDS: LEVOTHYROXINE 125 MCG TABLET PO SCH (05:42)
[2020-05-16] MEDS: SODIUM CHLORIDE 0.45% 1,000 ML IV SCH (05:42)
[2020-05-16] MEDS: INSULIN LISPRO 100 UNIT/ML SUBCUT SCH ×3 (06:21→18:15)
[2020-05-16] MEDS ORDERED: POTASSIUM CHLORIDE 20 MEQ/15 ML UDCUP PER TUBE ONE (07:55)
[2020-05-16] MEDS: ENOXAPARIN 100 MG/ML SYRINGE SUBCUT SCH (10:03)
[2020-05-16] MEDS: MEGESTROL ES 125 MG/ML 30 ML/BOTTLE PO SCH (10:03)
[2020-05-16] MEDS: INSULIN GLARGINE 100 UNIT/ML SUBCUT SCH ×2 (10:04→21:23)
[2020-05-16] MEDS: ALBUMIN 25% 12.5 GM in PREMIX 1 EACH IV SCH ×2 (10:04→17:29)
[2020-05-16] MEDS: MEROPENEM 500 MG in SODIUM CHLORIDE 0.9% 100 ML IV SCH ×2 (10:04→21:24)
[2020-05-16] MEDS: PANTOPRAZOLE 40 MG VIAL IV SCH ×2 (10:05→21:22)
[2020-05-17] MEDS: SODIUM CHLORIDE 0.45% 1,000 ML IV SCH (00:51)
[2020-05-17] MEDS: INSULIN LISPRO 100 UNIT/ML SUBCUT SCH ×4 (01:54→18:04)
[2020-05-17] MEDS: ALBUMIN 25% 12.5 GM in PREMIX 1 EACH IV SCH (01:56)
[2020-05-17] MEDS: HYDROCORTISONE 100 MG VIAL IV SCH ×2 (04:15→16:33)
[2020-05-17 05:16] LABS: Basophils # 0.1 10*3/uL (0.0-0.2); Basophils % 0.5 % (0.0-0.8); Eosinophils % 0.2 % (0.00-10.9); Hematocrit 29.1 VOL% (42.0-52.0); Hemoglobin 9.4 GM/DL (14.0-18.0); Immature Granulocytes % 12.9 %; Immature Granulocytes Absolute 2.86 #; Lymphocytes # 0.9 10*3/uL (1.4-4.0); Lymphocytes % 3.9 % (21.2-54.2); Mean Corpuscular HGB Conc 32.3 GM/DL (32-36); Mean Corpuscular Volume 92.1 FL (87-102); Mean Platelet Volume 10.1 FL (9.6-12.0); Monocytes % 5.2 % (1.7-12.7); NRBC # 0.11 10*3/uL; Neutrophils % 77.3 % (38.7-73.9); Platelet Count 141 T/CUMM (130-400); Red Blood Count 3.16 MC/CUMM (3.8-5.5); Red Cell Distribution Width 19.2 % (9.3-17.3); White Blood Count 22.2 T/CUMM (4-12)
[2020-05-17 05:39] LABS: Albumin 1.9 G/DL (3.4-5.0); Bilirubin,Total 0.5 MG/DL (0.2-1.0); Calcium 7.5 MG/DL (8.5-10.1); Osmolality,Calculated 334.6 MOS/KG (273-304); Potassium 3.4 MMOL/L (3.5-5.1); Total Protein 4.5 G/DL (6.4-8.3)
[2020-05-17] MEDS: LEVOTHYROXINE 125 MCG TABLET PO SCH (07:50)
[2020-05-17 08:05] LABS: Band Neutrophils 4 % (0-10); Eosinophils 1 % (0-10); Lymphocytes 11 % (20-55); Metamyelocytes 1 %; Segmented Neutrophils 75 % (50-85); Total Cells Counted 100
[2020-05-17 08:06] LABS: Anisocytosis 1+; Hypochromasia 2+; Macrocytosis 1+; Platelet Estimate Adequate
[2020-05-17] MEDS: ENOXAPARIN 100 MG/ML SYRINGE SUBCUT SCH (10:00)
[2020-05-17] MEDS: PANTOPRAZOLE 40 MG VIAL IV SCH ×2 (10:00→20:14)
[2020-05-17] MEDS: MEROPENEM 500 MG in SODIUM CHLORIDE 0.9% 100 ML IV SCH ×2 (10:00→20:14)
[2020-05-17] MEDS: INSULIN GLARGINE 100 UNIT/ML SUBCUT SCH ×2 (10:00→20:13)
[2020-05-17] MEDS: MEGESTROL ES 125 MG/ML 30 ML/BOTTLE PO SCH (11:49)
[2020-05-17] MEDS: NEBIVOLOL 5 MG TABLET PO SCH (20:13)
[2020-05-17] MEDS: SIMVASTATIN 40 MG TABLET PO SCH (20:14)
[2020-05-18] MEDS: INSULIN LISPRO 100 UNIT/ML SUBCUT SCH ×4 (00:01→18:34)
[2020-05-18] MEDS: SODIUM CHLORIDE 0.45% 1,000 ML IV SCH (01:52)
[2020-05-18] MEDS: HYDROCORTISONE 100 MG VIAL IV SCH ×2 (03:50→13:21)
[2020-05-18] MEDS: LEVOTHYROXINE 125 MCG TABLET PO SCH (05:30)
[2020-05-18 09:07] LABS: Calcium 7.7 MG/DL (8.5-10.1); Osmolality,Calculated 328.7 MOS/KG (273-304); Potassium 4.6 MMOL/L (3.5-5.1)
[2020-05-18 09:26] LABS: Basophils # 0.1 10*3/uL (0.0-0.2); Basophils % 0.6 % (0.0-0.8); Eosinophils % 0.2 % (0.00-10.9); Hematocrit 32.4 VOL% (42.0-52.0); Hemoglobin 10.3 GM/DL (14.0-18.0); Immature Granulocytes % 11.6 %; Immature Granulocytes Absolute 2.28 #; Lymphocytes # 0.7 10*3/uL (1.4-4.0); Lymphocytes % 3.5 % (21.2-54.2); Mean Corpuscular HGB Conc 31.8 GM/DL (32-36); Mean Corpuscular Volume 95.3 FL (87-102); Mean Platelet Volume 11.6 FL (9.6-12.0); Monocytes % 2.9 % (1.7-12.7); NRBC # 0.04 10*3/uL; Neutrophils % 81.2 % (38.7-73.9); Platelet Count 104 T/CUMM (130-400); Red Cell Distribution Width 19.3 % (9.3-17.3); White Blood Count 19.6 T/CUMM (4-12)
[2020-05-18] MEDS: PANTOPRAZOLE 40 MG VIAL IV SCH ×2 (09:59→20:24)
[2020-05-18] MEDS: APIXABAN 5 MG TABLET PO SCH ×2 (09:59→20:25)
[2020-05-18] MEDS: NEBIVOLOL 5 MG TABLET PO SCH ×2 (09:59→20:26)
[2020-05-18] MEDS: amLODIPine 5 MG TABLET PO SCH (09:59)
[2020-05-18] MEDS: FERROUS SULFATE 325 MG TABLET PO SCH (10:00)
[2020-05-18] MEDS: INSULIN GLARGINE 100 UNIT/ML SUBCUT SCH ×2 (10:00→20:25)
[2020-05-18] MEDS: MEROPENEM 500 MG in SODIUM CHLORIDE 0.9% 100 ML IV SCH ×2 (10:03→20:26)
[2020-05-18] MEDS: MEGESTROL ES 125 MG/ML 30 ML/BOTTLE PO SCH (10:03)
[2020-05-18 12:28] LABS: Band Neutrophils 2 % (0-10); Elliptocytes Few; Hypochromasia 2+; Lymphocytes 2 % (20-55); Metamyelocytes 1 %; Nucleated Red Blood Cells 1 (0-5); Ovalocytes Few; Platelet Estimate Adequate; Polychromasia Slight; Segmented Neutrophils 88 % (50-85); Total Cells Counted 100
[2020-05-18] MEDS: DEXTROSE 5% 1,000 ML IV SCH (13:23)
[2020-05-18] MEDS: SIMVASTATIN 40 MG TABLET PO SCH (20:26)
[2020-05-19] MEDS: INSULIN LISPRO 100 UNIT/ML SUBCUT SCH ×4 (00:37→18:58)
[2020-05-19] MEDS: HYDROCORTISONE 100 MG VIAL IV SCH ×2 (00:44→13:12)
[2020-05-19] MEDS: DEXTROSE 5% 1,000 ML IV SCH ×3 (00:44→18:45)
[2020-05-19 06:27] LABS: Basophils # 0.1 10*3/uL (0.0-0.2); Basophils % 0.4 % (0.0-0.8); Eosinophils # 0.5 10*3/uL (0.0-0.87); Hematocrit 29.5 VOL% (42.0-52.0); Hemoglobin 8.9 GM/DL (14.0-18.0); Immature Granulocytes % 10.5 %; Immature Granulocytes Absolute 1.72 #; Mean Corpuscular HGB Conc 30.2 GM/DL (32-36); Mean Corpuscular Volume 95.8 FL (87-102); Mean Platelet Volume 12.1 FL (9.6-12.0); Monocytes % 6.3 % (1.7-12.7); NRBC # 0.02 10*3/uL; Neutrophils % 73.8 % (38.7-73.9); Platelet Count 84 T/CUMM (130-400); Red Blood Count 3.08 MC/CUMM (3.8-5.5); White Blood Count 16.4 T/CUMM (4-12)
[2020-05-19 06:33] LABS: Calcium 7.4 MG/DL (8.5-10.1); Potassium 3.2 MMOL/L (3.5-5.1)
[2020-05-19] MEDS: LEVOTHYROXINE 125 MCG TABLET PO SCH (08:27)
[2020-05-19 08:41] LABS: Band Neutrophils 4 % (0-10); Eosinophils 3 % (0-10); Hypochromasia 2+; Lymphocytes 6 % (20-55); Metamyelocytes 5 %; Myelocytes 1 %; Platelet Estimate Decreased; Segmented Neutrophils 75 % (50-85); Total Cells Counted 100
[2020-05-19 08:42] LABS: Reactive Lymphocytes Few
[2020-05-19] MEDS: MEROPENEM 500 MG in SODIUM CHLORIDE 0.9% 100 ML IV SCH ×2 (09:19→22:26)
[2020-05-19] MEDS: INSULIN GLARGINE 100 UNIT/ML SUBCUT SCH ×2 (09:21→22:26)
[2020-05-19] MEDS: APIXABAN 5 MG TABLET PO SCH ×2 (09:22→22:23)
[2020-05-19] MEDS: NEBIVOLOL 5 MG TABLET PO SCH ×2 (09:22→22:22)
[2020-05-19] MEDS: FERROUS SULFATE 325 MG TABLET PO SCH (09:22)
[2020-05-19] MEDS: PANTOPRAZOLE 40 MG VIAL IV SCH ×2 (09:22→22:27)
[2020-05-19] MEDS: amLODIPine 5 MG TABLET PO SCH (09:22)
[2020-05-19] MEDS: POTASSIUM CHLORIDE RIDER 10 MEQ in PREMIX 1 EACH IV SCH ×4 (13:13→16:50)
[2020-05-19] MEDS: SIMVASTATIN 40 MG TABLET PO SCH (22:28)
[2020-05-20] MEDS: INSULIN LISPRO 100 UNIT/ML SUBCUT SCH ×4 (00:38→19:28)
[2020-05-20] MEDS: HYDROCORTISONE 100 MG VIAL IV SCH ×2 (00:39→13:45)
[2020-05-20] MEDS: DEXTROSE 5% 1,000 ML IV SCH ×3 (02:31→18:34)
[2020-05-20] MEDS: LEVOTHYROXINE 125 MCG TABLET PO SCH (05:46)
[2020-05-20 06:52] LABS: Calcium 7.4 MG/DL (8.5-10.1); Osmolality,Calculated 308.6 MOS/KG (273-304); Potassium 3.6 MMOL/L (3.5-5.1)
[2020-05-20] MEDS: APIXABAN 5 MG TABLET PO SCH ×2 (10:08→21:03)
[2020-05-20] MEDS: NEBIVOLOL 5 MG TABLET PO SCH ×2 (10:08→21:03)
[2020-05-20] MEDS: INSULIN GLARGINE 100 UNIT/ML SUBCUT SCH ×2 (10:08→21:03)
[2020-05-20] MEDS: FERROUS SULFATE 325 MG TABLET PO SCH (10:08)
[2020-05-20] MEDS: amLODIPine 5 MG TABLET PO SCH (10:10)
[2020-05-20] MEDS: PANTOPRAZOLE 40 MG VIAL IV SCH (10:10)
[2020-05-20] MEDS: MEROPENEM 500 MG in SODIUM CHLORIDE 0.9% 100 ML IV SCH ×2 (10:10→21:03)
[2020-05-20] MEDS: CITRIC ACID/SODIUM CITRATE 30 ML UDCUP PO SCH ×2 (18:34→21:42)
[2020-05-20] MEDS ORDERED: INSULIN LISPRO 100 UNIT/ML SUBCUT ONE (20:37)
[2020-05-20] MEDS: SIMVASTATIN 40 MG TABLET PO SCH (21:04)
[2020-05-21] MEDS: DEXTROSE 5% 1,000 ML IV SCH (01:18)
[2020-05-21] MEDS: INSULIN LISPRO 100 UNIT/ML SUBCUT SCH ×4 (01:25→19:37)
[2020-05-21] MEDS: HYDROCORTISONE 100 MG VIAL IV SCH ×2 (01:26→14:13)
[2020-05-21] MEDS: LEVOTHYROXINE 125 MCG TABLET PO SCH (05:52)
[2020-05-21 06:06] LABS: Calcium 7.3 MG/DL (8.5-10.1); Osmolality,Calculated 300.3 MOS/KG (273-304); Potassium 3.6 MMOL/L (3.5-5.1)
[2020-05-21] MEDS: NEBIVOLOL 5 MG TABLET PO SCH ×2 (10:04→21:44)
[2020-05-21] MEDS: FERROUS SULFATE 325 MG TABLET PO SCH (10:04)
[2020-05-21] MEDS: CITRIC ACID/SODIUM CITRATE 30 ML UDCUP PO SCH ×3 (10:04→21:45)
[2020-05-21] MEDS: APIXABAN 5 MG TABLET PO SCH ×2 (10:04→21:44)
[2020-05-21] MEDS: amLODIPine 5 MG TABLET PO SCH (10:05)
[2020-05-21] MEDS: INSULIN GLARGINE 100 UNIT/ML SUBCUT SCH ×2 (11:40→21:45)
[2020-05-21] MEDS: LACTATED RINGERS 1,000 ML IV SCH ×3 (13:13→21:45)
[2020-05-21] MEDS: SIMVASTATIN 40 MG TABLET PO SCH (21:44)
[2020-05-22] MEDS: LACTATED RINGERS 1,000 ML IV SCH ×2 (01:35→09:12)
[2020-05-22] MEDS: INSULIN LISPRO 100 UNIT/ML SUBCUT SCH ×3 (01:52→12:17)
[2020-05-22] MEDS: HYDROCORTISONE 100 MG VIAL IV SCH (01:52)
[2020-05-22] MEDS: LEVOTHYROXINE 125 MCG TABLET PO SCH (05:44)
[2020-05-22] MEDS: INSULIN GLARGINE 100 UNIT/ML SUBCUT SCH (11:00)
[2020-05-22] MEDS: APIXABAN 5 MG TABLET PO SCH (11:01)
[2020-05-22] MEDS: amLODIPine 5 MG TABLET PO SCH (11:01)
[2020-05-22] MEDS: NEBIVOLOL 5 MG TABLET PO SCH (11:01)
[2020-05-22] MEDS: FERROUS SULFATE 325 MG TABLET PO SCH (11:01)
[2020-05-22] MEDS: CITRIC ACID/SODIUM CITRATE 30 ML UDCUP PO SCH (11:02)
[2020-05-22 12:39] VITALS: BP 131/65
[2020-05-22] MEDS ORDERED: SODIUM BICARBONATE 650 MG TABLET PO SCH (15:00)
== END 2020-05-22 12:51 | DRG 682 ==
LOC: N.ED 09:57 → N.EDINP 12:48 → SUATTDRO 12:48 → N.ICU 15:18 → N.TELES 05-17 13:17
PROVIDERS: ADMIT Internal Medicine; ATTEND Internal Medicine Geriatric Medicine

== ENCOUNTER 2020-06-10 10:31 | Inpatient (IN) ==
[2020-06-10] MEDS ORDERED: SODIUM CHLORIDE 0.9% 1,000 ML IV STA ×2 (10:42→11:27)
[2020-06-10 11:00] LABS: Basophils # 0.1 10*3/uL (0.0-0.2); Basophils % 0.8 % (0.0-0.8); Eosinophils # 0.8 10*3/uL (0.0-0.87); Eosinophils % 8.7 % (0.00-10.9); Hematocrit 31.1 VOL% (42.0-52.0); Hemoglobin 9.5 GM/DL (14.0-18.0); Immature Granulocytes % 1.2 %; Immature Granulocytes Absolute 0.12 #; Lymphocytes # 0.8 10*3/uL (1.4-4.0); Mean Corpuscular HGB Conc 30.5 GM/DL (32-36); Mean Corpuscular Volume 91.2 FL (87-102); Mean Platelet Volume 10.1 FL (9.6-12.0); Monocytes % 9.2 % (1.7-12.7); Neutrophils % 72.1 % (38.7-73.9); Platelet Count 253 T/CUMM (130-400); Red Blood Count 3.41 MC/CUMM (3.8-5.5); White Blood Count 9.6 T/CUMM (4-12)
[2020-06-10 11:14] LABS: INR 1.4; PT Patient Result 14.7 SECS (9.8-11.9); Partial Thromboplastin Time 73.7 SECS (23.9-33.8)
[2020-06-10 11:20] LABS: Eosinophils 3 % (0-10); Hypochromasia 1+; Lymphocytes 7 % (20-55); Microcytosis 1+; Ovalocytes Slight; Platelet Estimate Adequate; Segmented Neutrophils 82 % (50-85); Total Cells Counted 100
[2020-06-10 11:46] LABS: Protein,Urine 100 MG/DL; Urine Appearance Clear (Clear); Urine Color Yellow (Yellow); Urine Specific Gravity 1.005 (1.001-1.035)
[2020-06-10 11:47] LABS: Bilirubin,Urine Negative (Negative); Blood, Urine Negative (Negative); Glucose,Urine (UA) Negative (Negative); Ketones,Urine Negative (Negative); Nitrite,Urine Negative (Negative); Urine Urobilinogen 0.2 EU/DL (0.2-1.0)
[2020-06-10] MEDS ORDERED: ERTAPENEM 1,000 MG in SODIUM CHLORIDE 0.9% 100 ML IV SCH (12:00)
[2020-06-10 12:16] LABS: Alanine Aminotransferase 19 U/L (16-61); Albumin 1.2 G/DL (3.4-5.0); Alkaline Phosphatase 113 U/L (45-117); Aspartate Amino Transferase 24 U/L (0-37); Bilirubin,Total < 0.39 MG/DL (0.2-1.0); Blood Urea Nitrogen 45 MG/DL (7-18); Calcium 7.4 MG/DL (8.5-10.1); Carbon Dioxide 22 MMOL/L (21-32); Estimated Glom Filtration Rate 19 ML/MIN; Glucose 142 MG/DL (74-106); Osmolality,Calculated 286.8 MOS/KG (273-304); Sodium 137 MMOL/L (136-145); Total Protein 4.4 G/DL (6.4-8.3)
[2020-06-10] MEDS ORDERED: ALBUTEROL 2.5 MG/3 ML NEB RESP TX PRN (13:57)
[2020-06-10] MEDS ORDERED: ONDANSETRON 4 MG/2 ML VIAL IV PRN (13:57)
[2020-06-10] MEDS ORDERED: AZITHROMYCIN INJ 500 MG in SODIUM CHLORIDE 0.9% 250 ML IV ONE (14:01)
[2020-06-10] MEDS ORDERED: HYDROCORTISONE 100 MG VIAL IV STA (14:05)
[2020-06-10 16:37] LABS: Bilirubin,Urine Negative (Negative); Blood, Urine Negative (Negative); Glucose,Urine (UA) Negative (Negative); Ketones,Urine Negative (Negative); Nitrite,Urine Negative (Negative); Protein,Urine 100 MG/DL; Urine Appearance CLEAR (Clear); Urine Color Yellow (Yellow); Urine Specific Gravity 1.012 (1.001-1.035); Urine Urobilinogen < 2.0 EU/DL (0.2-1.0)
[2020-06-10] MEDS ORDERED: DEXTROSE 50% 25 GM/50 ML VIAL IV PRN (16:44)
[2020-06-10] MEDS ORDERED: GLUCAGON 1 MG VIAL IM PRN (16:44)
[2020-06-10 17:00] LABS: Hyaline Casts,Urine 6 /LPF (0-3); Mucus,Urine Occasional /LPF (Occasional); RBC,Urine 2 /HPF (0-4); WBC,Urine 3 /HPF (0-6)
[2020-06-10] MEDS ORDERED: SODIUM CHLORIDE 0.9% 500 ML IV ONE ×2 (17:22→18:16)
[2020-06-10] MEDS: SODIUM CHLORIDE 0.9% 1,000 ML IV SCH (18:54)
[2020-06-10] MEDS: ALBUTEROL 2.5 MG/3 ML NEB RESP TX SCH (20:59)
[2020-06-10] MEDS ORDERED: ENOXAPARIN 30 MG/0.3 ML SYRINGE SUBCUT SCH (21:00)
[2020-06-10] MEDS ORDERED: FAMOTIDINE 20 MG TABLET PO SCH (21:00)
[2020-06-10] MEDS: INSULIN LISPRO 100 UNIT/ML SUBCUT SCH (21:10)
[2020-06-10] MEDS: ASCORBIC ACID 500 MG TABLET PO SCH (21:11)
[2020-06-10] MEDS ORDERED: NOREPINEPHRINE 8 MG in SODIUM CHLORIDE 0.9% 242 ML IV PRN (22:52)
[2020-06-11] MEDS: ALBUTEROL 2.5 MG/3 ML NEB RESP TX SCH ×3 (00:34→13:58)
[2020-06-11 03:56] LABS: Basophils % 0.1 % (0.0-0.8); Hematocrit 31.6 VOL% (42.0-52.0); Hemoglobin 9.3 GM/DL (14.0-18.0); Immature Granulocytes % 1.3 %; Immature Granulocytes Absolute 0.11 #; Lymphocytes # 0.3 10*3/uL (1.4-4.0); Lymphocytes % 4.1 % (21.2-54.2); Mean Corpuscular HGB Conc 29.4 GM/DL (32-36); Mean Corpuscular Volume 94.9 FL (87-102); Mean Platelet Volume 10.5 FL (9.6-12.0); Monocytes % 4.1 % (1.7-12.7); Neutrophils % 90.4 % (38.7-73.9); Platelet Count 227 T/CUMM (130-400); Red Blood Count 3.33 MC/CUMM (3.8-5.5); Red Cell Distribution Width 17.8 % (9.3-17.3); White Blood Count 8.2 T/CUMM (4-12)
[2020-06-11 04:25] LABS: Albumin 1.1 G/DL (3.4-5.0); Bilirubin,Total 0.7 MG/DL (0.2-1.0); Calcium 7.6 MG/DL (8.5-10.1); Osmolality,Calculated 291.7 MOS/KG (273-304); Potassium 4.2 MMOL/L (3.5-5.1); Total Protein 4.4 G/DL (6.4-8.3)
[2020-06-11 04:55] LABS: Band Neutrophils 1 % (0-10); Lymphocytes 8 % (20-55); Platelet Estimate Normal; Segmented Neutrophils 89 % (50-85); Total Cells Counted 100
[2020-06-11 04:56] LABS: Hypochromasia Slight
[2020-06-11] MEDS: INSULIN LISPRO 100 UNIT/ML SUBCUT SCH ×3 (07:03→17:25)
[2020-06-11] MEDS ORDERED: MAGNESIUM SULF RIDER 4 GM in PREMIX 1 EACH IV ONE (07:08)
[2020-06-11] MEDS: ASCORBIC ACID 500 MG TABLET PO SCH ×2 (08:28→20:43)
[2020-06-11] MEDS: FAMOTIDINE 20 MG TABLET PO SCH (08:28)
[2020-06-11] MEDS: CHOLECALCIFEROL 1,000 UNIT TABLET PO SCH (08:28)
[2020-06-11] MEDS: ZINC GLUCONATE 50 MG TABLET PO SCH (08:28)
[2020-06-11] MEDS: DEXAMETHASONE 4 MG/1 ML VIAL IV SCH (08:29)
[2020-06-11] MEDS ORDERED: SODIUM BICARBONATE 50 MEQ/50 ML VIAL IV ONE (08:44)
[2020-06-11] MEDS: SODIUM CHLORIDE 0.9% 1,000 ML IV SCH (08:46)
[2020-06-11] MEDS: SODIUM CHLORIDE 23.4% CONC INJ 38.5 MEQ, SODIUM BICARB INJ 100 MEQ in STERILE WATER INJ... IV SCH ×3 (10:15→21:38)
[2020-06-11] MEDS: ERTAPENEM 500 MG in SODIUM CHLORIDE 0.9% 100 ML IV SCH (13:43)
[2020-06-11] MEDS: ENOXAPARIN 100 MG/ML SYRINGE SUBCUT SCH (14:15)
[2020-06-11] MEDS: ALBUTEROL INHALER 18 GM INH SCH (18:06)
[2020-06-12] MEDS: INSULIN LISPRO 100 UNIT/ML SUBCUT SCH ×5 (00:10→18:21)
[2020-06-12] MEDS: ALBUTEROL INHALER 18 GM INH SCH ×4 (00:10→18:21)
[2020-06-12 04:19] LABS: Basophils % 0.1 % (0.0-0.8); Hematocrit 28.6 VOL% (42.0-52.0); Immature Granulocytes % 1.2 %; Immature Granulocytes Absolute 0.11 #; Lymphocytes # 0.5 10*3/uL (1.4-4.0); Lymphocytes % 5.5 % (21.2-54.2); Mean Corpuscular HGB Conc 31.5 GM/DL (32-36); Mean Corpuscular Volume 91.7 FL (87-102); Mean Platelet Volume 10.8 FL (9.6-12.0); Monocytes % 5.6 % (1.7-12.7); Neutrophils % 87.6 % (38.7-73.9); Platelet Count 257 T/CUMM (130-400); Red Blood Count 3.12 MC/CUMM (3.8-5.5); Red Cell Distribution Width 17.9 % (9.3-17.3); White Blood Count 9.4 T/CUMM (4-12)
[2020-06-12 04:42] LABS: Albumin 1.3 G/DL (3.4-5.0); Bilirubin,Total 1.3 MG/DL (0.2-1.0); Calcium 7.8 MG/DL (8.5-10.1); Osmolality,Calculated 308.3 MOS/KG (273-304); Potassium 3.5 MMOL/L (3.5-5.1); Total Protein 4.7 G/DL (6.4-8.3)
[2020-06-12] MEDS: SODIUM CHLORIDE 23.4% CONC INJ 38.5 MEQ, SODIUM BICARB INJ 100 MEQ in STERILE WATER INJ... IV SCH ×2 (08:30→22:11)
[2020-06-12] MEDS: ASCORBIC ACID 500 MG TABLET PO SCH ×2 (08:34→22:03)
[2020-06-12] MEDS: ZINC GLUCONATE 50 MG TABLET PO SCH (08:34)
[2020-06-12] MEDS: FAMOTIDINE 20 MG TABLET PO SCH (08:35)
[2020-06-12] MEDS: CHOLECALCIFEROL 1,000 UNIT TABLET PO SCH (08:35)
[2020-06-12] MEDS: DEXAMETHASONE 4 MG/1 ML VIAL IV SCH (08:36)
[2020-06-12] MEDS: INSULIN GLARGINE 100 UNIT/ML SUBCUT SCH (08:42)
[2020-06-12] MEDS: ERTAPENEM 500 MG in SODIUM CHLORIDE 0.9% 100 ML IV SCH (12:09)
[2020-06-12] MEDS ORDERED: ERGOCALCIFEROL 50,000 UNIT CAPSULE PO SCH (13:16)
[2020-06-12] MEDS: ENOXAPARIN 100 MG/ML SYRINGE SUBCUT SCH (13:56)
[2020-06-12] MEDS: SIMVASTATIN 40 MG TABLET PO SCH (22:03)
[2020-06-12] MEDS: MENTHOL/ZINC OXIDE OINT 71 GM JAR TOP SCH (22:31)
[2020-06-13] MEDS: INSULIN LISPRO 100 UNIT/ML SUBCUT SCH ×4 (01:04→18:10)
[2020-06-13] MEDS: ALBUTEROL INHALER 18 GM INH SCH ×4 (02:43→20:35)
[2020-06-13 05:31] LABS: Basophils % 0.1 % (0.0-0.8); Immature Granulocytes % 1.9 %; Immature Granulocytes Absolute 0.22 #; Lymphocytes # 0.4 10*3/uL (1.4-4.0); Lymphocytes % 3.7 % (21.2-54.2); Mean Corpuscular HGB Conc 33.3 GM/DL (32-36); Mean Corpuscular Volume 86.5 FL (87-102); Mean Platelet Volume 10.8 FL (9.6-12.0); Monocytes % 4.9 % (1.7-12.7); Neutrophils % 89.4 % (38.7-73.9); Platelet Count 260 T/CUMM (130-400); Red Blood Count 3.12 MC/CUMM (3.8-5.5); Red Cell Distribution Width 17.8 % (9.3-17.3); White Blood Count 11.4 T/CUMM (4-12)
[2020-06-13 05:53] LABS: Band Neutrophils 1 % (0-10); Hypochromasia 2+; Lymphocytes 3 % (20-55); Microcytosis 1+; Ovalocytes Slight; Platelet Estimate Adequate; Segmented Neutrophils 93 % (50-85); Total Cells Counted 100
[2020-06-13 05:54] LABS: Bilirubin,Total 0.4 MG/DL (0.2-1.0); Calcium 7.5 MG/DL (8.5-10.1); Osmolality,Calculated 305.7 MOS/KG (273-304); Potassium 3.2 MMOL/L (3.5-5.1); Total Protein 4.5 G/DL (6.4-8.3)
[2020-06-13] MEDS: LEVOTHYROXINE 125 MCG TABLET PO SCH (06:17)
[2020-06-13] MEDS: FAMOTIDINE 20 MG TABLET PO SCH (09:06)
[2020-06-13] MEDS: MAGNESIUM OXIDE 400 MG TABLET PO SCH (09:06)
[2020-06-13] MEDS: ZINC GLUCONATE 50 MG TABLET PO SCH (09:06)
[2020-06-13] MEDS: CHOLECALCIFEROL 1,000 UNIT TABLET PO SCH (09:06)
[2020-06-13] MEDS: FERROUS SULFATE 325 MG TABLET PO SCH (09:06)
[2020-06-13] MEDS: ASCORBIC ACID 500 MG TABLET PO SCH ×2 (09:07→20:35)
[2020-06-13] MEDS: INSULIN GLARGINE 100 UNIT/ML SUBCUT SCH (09:07)
[2020-06-13] MEDS: DEXAMETHASONE 4 MG/1 ML VIAL IV SCH (09:07)
[2020-06-13] MEDS: MENTHOL/ZINC OXIDE OINT 71 GM JAR TOP SCH ×2 (09:48→20:35)
[2020-06-13] MEDS: SODIUM CHLORIDE 23.4% CONC INJ 38.5 MEQ, SODIUM BICARB INJ 100 MEQ in STERILE WATER INJ... IV SCH (12:40)
[2020-06-13] MEDS: ERTAPENEM 500 MG in SODIUM CHLORIDE 0.9% 100 ML IV SCH (12:41)
[2020-06-13] MEDS: ENOXAPARIN 100 MG/ML SYRINGE SUBCUT SCH (15:50)
[2020-06-13] MEDS: POTASSIUM CHLORIDE RIDER 10 MEQ in PREMIX 1 EACH IV PRN ×3 (15:52→23:06)
[2020-06-13] MEDS: SIMVASTATIN 40 MG TABLET PO SCH (20:35)
[2020-06-14] MEDS: SODIUM CHLORIDE 23.4% CONC INJ 38.5 MEQ, SODIUM BICARB INJ 100 MEQ in STERILE WATER INJ... IV SCH ×2 (00:16→17:56)
[2020-06-14] MEDS: INSULIN LISPRO 100 UNIT/ML SUBCUT SCH ×4 (01:15→17:56)
[2020-06-14] MEDS: POTASSIUM CHLORIDE RIDER 10 MEQ in PREMIX 1 EACH IV PRN (01:16)
[2020-06-14] MEDS: ALBUTEROL INHALER 18 GM INH SCH ×4 (02:32→21:51)
[2020-06-14] MEDS: LEVOTHYROXINE 125 MCG TABLET PO SCH (05:53)
[2020-06-14 07:01] LABS: Albumin 1.1 G/DL (3.4-5.0); Bilirubin,Total 0.5 MG/DL (0.2-1.0); Calcium 6.8 MG/DL (8.5-10.1); Osmolality,Calculated 309.7 MOS/KG (273-304); Potassium 3.7 MMOL/L (3.5-5.1); Total Protein 4.3 G/DL (6.4-8.3)
[2020-06-14 07:08] LABS: Basophils % 0.1 % (0.0-0.8); Hematocrit 26.7 VOL% (42.0-52.0); Hemoglobin 8.7 GM/DL (14.0-18.0); Immature Granulocytes % 2.8 %; Immature Granulocytes Absolute 0.34 #; Lymphocytes # 0.5 10*3/uL (1.4-4.0); Lymphocytes % 3.9 % (21.2-54.2); Mean Corpuscular HGB Conc 32.6 GM/DL (32-36); Mean Corpuscular Volume 86.4 FL (87-102); Mean Platelet Volume 11.2 FL (9.6-12.0); Monocytes % 8.4 % (1.7-12.7); NRBC # 0.02 10*3/uL; Neutrophils % 84.8 % (38.7-73.9); Platelet Count 268 T/CUMM (130-400); Red Blood Count 3.09 MC/CUMM (3.8-5.5); Red Cell Distribution Width 18.1 % (9.3-17.3); White Blood Count 12.1 T/CUMM (4-12)
[2020-06-14 07:40] LABS: Anisocytosis 1+; Band Neutrophils 16 % (0-10); Hypochromasia 1+; Lymphocytes 4 % (20-55); Nucleated Red Blood Cells 2 (0-5); Platelet Estimate Normal; Segmented Neutrophils 74 % (50-85); Smudge Cells Few; Total Cells Counted 100
[2020-06-14 07:41] LABS: Burr Cells Few; Macrocytosis Slight
[2020-06-14] MEDS: MENTHOL/ZINC OXIDE OINT 71 GM JAR TOP SCH ×2 (09:00→21:52)
[2020-06-14] MEDS: ASCORBIC ACID 500 MG TABLET PO SCH ×3 (10:47→21:52)
[2020-06-14] MEDS: FERROUS SULFATE 325 MG TABLET PO SCH ×2 (10:47→10:50)
[2020-06-14] MEDS: CHOLECALCIFEROL 1,000 UNIT TABLET PO SCH ×2 (10:47→10:50)
[2020-06-14] MEDS: FAMOTIDINE 20 MG TABLET PO SCH ×2 (10:48→10:50)
[2020-06-14] MEDS: MAGNESIUM OXIDE 400 MG TABLET PO SCH ×2 (10:49→10:50)
[2020-06-14] MEDS: ZINC GLUCONATE 50 MG TABLET PO SCH ×2 (10:49→10:50)
[2020-06-14] MEDS: INSULIN GLARGINE 100 UNIT/ML SUBCUT SCH (10:50)
[2020-06-14] MEDS: DEXAMETHASONE 4 MG/1 ML VIAL IV SCH (10:52)
[2020-06-14] MEDS: ERTAPENEM 500 MG in SODIUM CHLORIDE 0.9% 100 ML IV SCH (13:37)
[2020-06-14] MEDS: ENOXAPARIN 100 MG/ML SYRINGE SUBCUT SCH (17:56)
[2020-06-14] MEDS: SIMVASTATIN 40 MG TABLET PO SCH (21:52)
[2020-06-15] MEDS: INSULIN LISPRO 100 UNIT/ML SUBCUT SCH ×4 (00:51→17:58)
[2020-06-15] MEDS: ALBUTEROL INHALER 18 GM INH SCH ×4 (00:53→20:43)
[2020-06-15] MEDS: SODIUM CHLORIDE 23.4% CONC INJ 38.5 MEQ, SODIUM BICARB INJ 100 MEQ in STERILE WATER INJ... IV SCH ×3 (06:19→20:43)
[2020-06-15] MEDS: LEVOTHYROXINE 125 MCG TABLET PO SCH (06:19)
[2020-06-15] MEDS: INSULIN GLARGINE 100 UNIT/ML SUBCUT SCH (10:53)
[2020-06-15] MEDS: DEXAMETHASONE 4 MG/1 ML VIAL IV SCH (11:04)
[2020-06-15] MEDS: MAGNESIUM OXIDE 400 MG TABLET PO SCH (11:05)
[2020-06-15] MEDS: FERROUS SULFATE 325 MG TABLET PO SCH (11:05)
[2020-06-15] MEDS: CHOLECALCIFEROL 1,000 UNIT TABLET PO SCH (11:06)
[2020-06-15] MEDS: FAMOTIDINE 20 MG TABLET PO SCH (11:06)
[2020-06-15] MEDS: ZINC GLUCONATE 50 MG TABLET PO SCH (11:06)
[2020-06-15] MEDS: ASCORBIC ACID 500 MG TABLET PO SCH ×2 (11:06→20:44)
[2020-06-15] MEDS: ERTAPENEM 500 MG in SODIUM CHLORIDE 0.9% 100 ML IV SCH (15:27)
[2020-06-15] MEDS: ENOXAPARIN 100 MG/ML SYRINGE SUBCUT SCH (15:27)
[2020-06-15] MEDS: MENTHOL/ZINC OXIDE OINT 71 GM JAR TOP SCH ×2 (15:28→20:44)
[2020-06-15] MEDS: TAMSULOSIN 0.4 MG CAPSULE PO SCH (20:44)
[2020-06-15] MEDS: CIPROFLOXACIN 500 MG TABLET PO SCH (20:44)
[2020-06-15] MEDS: APIXABAN 2.5 MG TABLET PO SCH (20:44)
[2020-06-15] MEDS: SIMVASTATIN 40 MG TABLET PO SCH (20:44)
[2020-06-16] MEDS: INSULIN LISPRO 100 UNIT/ML SUBCUT SCH ×4 (00:22→18:30)
[2020-06-16] MEDS: ACETAMINOPHEN 325 MG TABLET PO PRN ×2 (00:23→06:11)
[2020-06-16] MEDS: ALBUTEROL INHALER 18 GM INH SCH ×4 (00:23→21:00)
[2020-06-16] MEDS: LEVOTHYROXINE 125 MCG TABLET PO SCH (06:11)
[2020-06-16 07:04] LABS: Basophils % 0.1 % (0.0-0.8); Hematocrit 26.3 VOL% (42.0-52.0); Hemoglobin 8.1 GM/DL (14.0-18.0); Immature Granulocytes % 7.1 %; Immature Granulocytes Absolute 0.87 #; Lymphocytes # 0.8 10*3/uL (1.4-4.0); Lymphocytes % 6.7 % (21.2-54.2); Mean Corpuscular HGB Conc 30.8 GM/DL (32-36); Mean Corpuscular Volume 91.3 FL (87-102); Mean Platelet Volume 10.6 FL (9.6-12.0); Monocytes % 7.8 % (1.7-12.7); NRBC # 0.07 10*3/uL; Neutrophils % 78.3 % (38.7-73.9); Platelet Count 257 T/CUMM (130-400); Red Blood Count 2.88 MC/CUMM (3.8-5.5); Red Cell Distribution Width 18.2 % (9.3-17.3); White Blood Count 12.3 T/CUMM (4-12)
[2020-06-16 07:28] LABS: Alanine Aminotransferase 20 U/L (16-61); Albumin 1.3 G/DL (3.4-5.0); Alkaline Phosphatase 95 U/L (45-117); Aspartate Amino Transferase 20 U/L (0-37); Bilirubin,Total < 0.39 MG/DL (0.2-1.0); Blood Urea Nitrogen 82 MG/DL (7-18); Calcium 7.2 MG/DL (8.5-10.1); Carbon Dioxide 31 MMOL/L (21-32); Estimated Glom Filtration Rate 38 ML/MIN; Glucose 258 MG/DL (74-106); Osmolality,Calculated 319.8 MOS/KG (273-304); Sodium 144 MMOL/L (136-145); Total Protein 3.9 G/DL (6.4-8.3)
[2020-06-16 09:00] LABS: Lymphocytes 2 % (20-55); Segmented Neutrophils 95 % (50-85); Total Cells Counted 100
[2020-06-16 09:03] LABS: Ovalocytes Slight; Platelet Estimate Normal; Polychromasia Slight
[2020-06-16 09:04] LABS: Schistocytes Slight
[2020-06-16 09:05] LABS: Hypochromasia 3+
[2020-06-16] MEDS: ZINC GLUCONATE 50 MG TABLET PO SCH (09:57)
[2020-06-16] MEDS: CIPROFLOXACIN 500 MG TABLET PO SCH ×2 (09:58→21:00)
[2020-06-16] MEDS: APIXABAN 2.5 MG TABLET PO SCH ×2 (09:58→21:00)
[2020-06-16] MEDS: MAGNESIUM OXIDE 400 MG TABLET PO SCH (09:58)
[2020-06-16] MEDS: ASCORBIC ACID 500 MG TABLET PO SCH ×2 (09:58→21:00)
[2020-06-16] MEDS: CHOLECALCIFEROL 1,000 UNIT TABLET PO SCH (09:58)
[2020-06-16] MEDS: FAMOTIDINE 20 MG TABLET PO SCH (09:59)
[2020-06-16] MEDS: PANTOPRAZOLE 40 MG TABLET PO SCH (09:59)
[2020-06-16] MEDS: INSULIN GLARGINE 100 UNIT/ML SUBCUT SCH (09:59)
[2020-06-16] MEDS: FERROUS SULFATE 325 MG TABLET PO SCH (09:59)
[2020-06-16] MEDS: DEXAMETHASONE 4 MG/1 ML VIAL IV SCH (10:00)
[2020-06-16 11:16] LABS: Bacteria,Urine Occasional /HPF (Few); Bilirubin,Urine Negative (Negative); Blood, Urine Negative (Negative); Glucose,Urine (UA) Negative (Negative); Ketones,Urine Negative (Negative); Nitrite,Urine Negative (Negative); Protein,Urine 30 MG/DL; RBC,Urine 4 /HPF (0-4); Squamous Epithelial Cell,Urine Occasional /HPF (0-10); Urine Appearance CLEAR (Clear); Urine Color Yellow (Yellow); Urine Specific Gravity 1.014 (1.001-1.035); Urine Urobilinogen < 2.0 EU/DL (0.2-1.0); WBC,Urine 4 /HPF (0-6)
[2020-06-16] MEDS: MENTHOL/ZINC OXIDE OINT 71 GM JAR TOP SCH ×2 (12:05→21:00)
[2020-06-16] MEDS: SODIUM CHLORIDE 23.4% CONC INJ 38.5 MEQ, SODIUM BICARB INJ 100 MEQ in STERILE WATER INJ... IV SCH (12:06)
[2020-06-16] MEDS: DOXYCYCLINE HYCLATE INJ 100 MG in SODIUM CHLORIDE 0.9% 100 ML IV SCH ×2 (12:49→23:43)
[2020-06-16] MEDS: SIMVASTATIN 40 MG TABLET PO SCH (21:00)
[2020-06-16] MEDS: TAMSULOSIN 0.4 MG CAPSULE PO SCH (21:00)
[2020-06-17] MEDS: SODIUM CHLORIDE 23.4% CONC INJ 38.5 MEQ, SODIUM BICARB INJ 100 MEQ in STERILE WATER INJ... IV SCH (01:02)
[2020-06-17] MEDS: INSULIN LISPRO 100 UNIT/ML SUBCUT SCH ×4 (01:02→18:37)
[2020-06-17] MEDS: ALBUTEROL INHALER 18 GM INH SCH ×4 (01:03→22:32)
[2020-06-17 04:07] LABS: Basophils % 0.2 % (0.0-0.8); Eosinophils % 0.2 % (0.00-10.9); Hematocrit 30.5 VOL% (42.0-52.0); Hemoglobin 9.2 GM/DL (14.0-18.0); Immature Granulocytes % 12.8 %; Lymphocytes # 1.1 10*3/uL (1.4-4.0); Lymphocytes % 7.9 % (21.2-54.2); Mean Corpuscular HGB Conc 30.2 GM/DL (32-36); Mean Corpuscular Volume 94.1 FL (87-102); Mean Platelet Volume 10.6 FL (9.6-12.0); Monocytes % 6.6 % (1.7-12.7); NRBC # 0.05 10*3/uL; Neutrophils % 72.3 % (38.7-73.9); Platelet Count 273 T/CUMM (130-400); Red Blood Count 3.24 MC/CUMM (3.8-5.5); Red Cell Distribution Width 18.8 % (9.3-17.3); White Blood Count 13.3 T/CUMM (4-12)
[2020-06-17 04:25] LABS: Calcium 7.2 MG/DL (8.5-10.1); Potassium 4.2 MMOL/L (3.5-5.1)
[2020-06-17 05:02] LABS: Band Neutrophils 2 % (0-10); Eosinophils 1 % (0-10); Hypochromasia 1+; Lymphocytes 6 % (20-55); Myelocytes 2 %; Segmented Neutrophils 88 % (50-85); Total Cells Counted 100
[2020-06-17 05:03] LABS: Anisocytosis 1+; Microcytosis 1+; Ovalocytes Slight; Polychromasia Slight
[2020-06-17 05:04] LABS: Platelet Estimate Normal
[2020-06-17] MEDS: LEVOTHYROXINE 125 MCG TABLET PO SCH (06:21)
[2020-06-17] MEDS: MENTHOL/ZINC OXIDE OINT 71 GM JAR TOP SCH ×2 (08:07→22:32)
[2020-06-17] MEDS: DEXAMETHASONE 4 MG/1 ML VIAL IV SCH (08:08)
[2020-06-17] MEDS: CIPROFLOXACIN 500 MG TABLET PO SCH ×2 (08:08→22:30)
[2020-06-17] MEDS: APIXABAN 2.5 MG TABLET PO SCH ×2 (08:08→22:30)
[2020-06-17] MEDS: PANTOPRAZOLE 40 MG TABLET PO SCH (08:09)
[2020-06-17] MEDS: INSULIN GLARGINE 100 UNIT/ML SUBCUT SCH (08:09)
[2020-06-17] MEDS: CHOLECALCIFEROL 1,000 UNIT TABLET PO SCH (08:09)
[2020-06-17] MEDS: FERROUS SULFATE 325 MG TABLET PO SCH (08:09)
[2020-06-17] MEDS: MAGNESIUM OXIDE 400 MG TABLET PO SCH (08:09)
[2020-06-17] MEDS: FAMOTIDINE 20 MG TABLET PO SCH (08:09)
[2020-06-17] MEDS: ASCORBIC ACID 500 MG TABLET PO SCH ×2 (08:09→22:30)
[2020-06-17] MEDS: ZINC GLUCONATE 50 MG TABLET PO SCH (08:10)
[2020-06-17] MEDS: DOXYCYCLINE HYCLATE INJ 100 MG in SODIUM CHLORIDE 0.9% 100 ML IV SCH ×2 (12:18→22:31)
[2020-06-17] MEDS: LOSARTAN 25 MG TABLET PO SCH (14:51)
[2020-06-17] MEDS: SODIUM BICARBONATE 650 MG TABLET PO SCH (22:30)
[2020-06-17] MEDS: SIMVASTATIN 40 MG TABLET PO SCH (22:30)
[2020-06-17] MEDS: TAMSULOSIN 0.4 MG CAPSULE PO SCH (22:31)
[2020-06-18] MEDS: INSULIN LISPRO 100 UNIT/ML SUBCUT SCH ×4 (00:53→18:28)
[2020-06-18] MEDS: ALBUTEROL INHALER 18 GM INH SCH ×4 (00:54→20:17)
[2020-06-18] MEDS: LEVOTHYROXINE 125 MCG TABLET PO SCH (05:53)
[2020-06-18] MEDS: CIPROFLOXACIN 500 MG TABLET PO SCH (10:43)
[2020-06-18] MEDS: DEXAMETHASONE 4 MG/1 ML VIAL IV SCH (10:44)
[2020-06-18] MEDS: FERROUS SULFATE 325 MG TABLET PO SCH (10:44)
[2020-06-18] MEDS: APIXABAN 2.5 MG TABLET PO SCH ×2 (10:44→21:02)
[2020-06-18] MEDS: LOSARTAN 25 MG TABLET PO SCH (10:44)
[2020-06-18] MEDS: INSULIN GLARGINE 100 UNIT/ML SUBCUT SCH (10:44)
[2020-06-18] MEDS: SODIUM BICARBONATE 650 MG TABLET PO SCH ×2 (10:45→20:16)
[2020-06-18] MEDS: MAGNESIUM OXIDE 400 MG TABLET PO SCH (10:45)
[2020-06-18] MEDS: PANTOPRAZOLE 40 MG TABLET PO SCH (10:45)
[2020-06-18] MEDS: FAMOTIDINE 20 MG TABLET PO SCH (10:45)
[2020-06-18] MEDS: ZINC GLUCONATE 50 MG TABLET PO SCH (10:45)
[2020-06-18] MEDS: CHOLECALCIFEROL 1,000 UNIT TABLET PO SCH (10:45)
[2020-06-18] MEDS: ASCORBIC ACID 500 MG TABLET PO SCH ×2 (10:45→20:17)
[2020-06-18] MEDS: MENTHOL/ZINC OXIDE OINT 71 GM JAR TOP SCH ×2 (12:22→21:02)
[2020-06-18] MEDS: DOXYCYCLINE HYCLATE INJ 100 MG in SODIUM CHLORIDE 0.9% 100 ML IV SCH (12:36)
[2020-06-18] MEDS: SIMVASTATIN 40 MG TABLET PO SCH (20:17)
[2020-06-18] MEDS: TAMSULOSIN 0.4 MG CAPSULE PO SCH (21:02)
[2020-06-19] MEDS: INSULIN LISPRO 100 UNIT/ML SUBCUT SCH ×4 (00:09→18:24)
[2020-06-19] MEDS: ALBUTEROL INHALER 18 GM INH SCH ×4 (00:32→19:12)
[2020-06-19] MEDS: LEVOTHYROXINE 125 MCG TABLET PO SCH (06:31)
[2020-06-19 07:22] LABS: Basophils % 0.1 % (0.0-0.8); Eosinophils # 0.3 10*3/uL (0.0-0.87); Eosinophils % 2.4 % (0.00-10.9); Hematocrit 31.1 VOL% (42.0-52.0); Hemoglobin 9.3 GM/DL (14.0-18.0); Immature Granulocytes % 10.4 %; Immature Granulocytes Absolute 1.13 #; Lymphocytes # 1.4 10*3/uL (1.4-4.0); Lymphocytes % 12.5 % (21.2-54.2); Mean Corpuscular HGB Conc 29.9 GM/DL (32-36); Mean Corpuscular Volume 95.7 FL (87-102); Mean Platelet Volume 11.2 FL (9.6-12.0); Monocytes % 5.8 % (1.7-12.7); NRBC # 0.02 10*3/uL; Neutrophils % 68.8 % (38.7-73.9); Platelet Count 244 T/CUMM (130-400); Red Blood Count 3.25 MC/CUMM (3.8-5.5); Red Cell Distribution Width 19.3 % (9.3-17.3); White Blood Count 10.8 T/CUMM (4-12)
[2020-06-19 07:49] LABS: Alanine Aminotransferase 22 U/L (16-61); Albumin 1.6 G/DL (3.4-5.0); Alkaline Phosphatase 106 U/L (45-117); Aspartate Amino Transferase 23 U/L (0-37); Bilirubin,Total < 0.39 MG/DL (0.2-1.0); Blood Urea Nitrogen 59 MG/DL (7-18); Calcium 7.5 MG/DL (8.5-10.1); Carbon Dioxide 27 MMOL/L (21-32); Estimated Glom Filtration Rate 55 ML/MIN; Glucose 145 MG/DL (74-106); Osmolality,Calculated 311.4 MOS/KG (273-304); Potassium 4.7 MMOL/L (3.5-5.1); Sodium 147 MMOL/L (136-145); Total Protein 4.4 G/DL (6.4-8.3)
[2020-06-19 07:50] LABS: Band Neutrophils 14 % (0-10); Eosinophils 2 % (0-10); Lymphocytes 15 % (20-55); Metamyelocytes 1 %; Myelocytes 2 %; Platelet Estimate Normal; Segmented Neutrophils 61 % (50-85); Smudge Cells Few; Total Cells Counted 100
[2020-06-19 07:51] LABS: Anisocytosis 1+; Hypochromasia Slight; Ovalocytes Few
[2020-06-19] MEDS: MAGNESIUM OXIDE 400 MG TABLET PO SCH (09:14)
[2020-06-19] MEDS: FAMOTIDINE 20 MG TABLET PO SCH (09:14)
[2020-06-19] MEDS: ASCORBIC ACID 500 MG TABLET PO SCH ×2 (09:14→20:53)
[2020-06-19] MEDS: DEXAMETHASONE 4 MG/1 ML VIAL IV SCH (09:14)
[2020-06-19] MEDS: APIXABAN 2.5 MG TABLET PO SCH ×2 (09:14→20:53)
[2020-06-19] MEDS: FERROUS SULFATE 325 MG TABLET PO SCH (09:14)
[2020-06-19] MEDS: SODIUM BICARBONATE 650 MG TABLET PO SCH ×2 (09:14→20:53)
[2020-06-19] MEDS: PANTOPRAZOLE 40 MG TABLET PO SCH (09:14)
[2020-06-19] MEDS: CHOLECALCIFEROL 1,000 UNIT TABLET PO SCH (09:14)
[2020-06-19] MEDS: MENTHOL/ZINC OXIDE OINT 71 GM JAR TOP SCH ×2 (09:14→20:53)
[2020-06-19] MEDS: ZINC GLUCONATE 50 MG TABLET PO SCH (09:14)
[2020-06-19] MEDS: LOSARTAN 25 MG TABLET PO SCH (09:14)
[2020-06-19] MEDS: INSULIN GLARGINE 100 UNIT/ML SUBCUT SCH (09:14)
[2020-06-19] MEDS ORDERED: LOSARTAN 50 MG TABLET PO SCH (13:19)
[2020-06-19] MEDS: TAMSULOSIN 0.4 MG CAPSULE PO SCH (20:53)
[2020-06-19] MEDS: SIMVASTATIN 40 MG TABLET PO SCH (20:53)
[2020-06-20] MEDS: ALBUTEROL INHALER 18 GM INH SCH ×3 (00:26→14:00)
[2020-06-20] MEDS: INSULIN LISPRO 100 UNIT/ML SUBCUT SCH ×3 (00:26→11:01)
[2020-06-20] MEDS: LEVOTHYROXINE 125 MCG TABLET PO SCH (06:35)
[2020-06-20 06:36] LABS: Basophils % 0.3 % (0.0-0.8); Eosinophils # 0.2 10*3/uL (0.0-0.87); Hematocrit 30.1 VOL% (42.0-52.0); Hemoglobin 9.3 GM/DL (14.0-18.0); Immature Granulocytes % 8.8 %; Immature Granulocytes Absolute 1.01 #; Lymphocytes # 1.4 10*3/uL (1.4-4.0); Lymphocytes % 12.6 % (21.2-54.2); Mean Corpuscular HGB Conc 30.9 GM/DL (32-36); Mean Corpuscular Volume 92.3 FL (87-102); Mean Platelet Volume 10.6 FL (9.6-12.0); Monocytes % 6.5 % (1.7-12.7); NRBC # 0.02 10*3/uL; Neutrophils % 69.8 % (38.7-73.9); Platelet Count 271 T/CUMM (130-400); Red Blood Count 3.26 MC/CUMM (3.8-5.5); Red Cell Distribution Width 19.7 % (9.3-17.3); White Blood Count 11.5 T/CUMM (4-12)
[2020-06-20 06:57] LABS: Calcium 7.8 MG/DL (8.5-10.1); Osmolality,Calculated 297.8 MOS/KG (273-304); Potassium 4.7 MMOL/L (3.5-5.1)
[2020-06-20 07:00] LABS: Albumin 1.6 G/DL (3.4-5.0); Bilirubin,Total 0.4 MG/DL (0.2-1.0); Calcium 7.6 MG/DL (8.5-10.1); Osmolality,Calculated 301.6 MOS/KG (273-304); Potassium 4.6 MMOL/L (3.5-5.1); Total Protein 4.2 G/DL (6.4-8.3)
[2020-06-20 07:11] LABS: Eosinophils 1 % (0-10); Hypochromasia 1+; Lymphocytes 7 % (20-55); Microcytosis 1+; Ovalocytes Slight; Platelet Estimate Adequate; Segmented Neutrophils 84 % (50-85); Total Cells Counted 100
[2020-06-20] MEDS: ZINC GLUCONATE 50 MG TABLET PO SCH (08:10)
[2020-06-20] MEDS: INSULIN GLARGINE 100 UNIT/ML SUBCUT SCH ×2 (08:10→08:24)
[2020-06-20] MEDS: PANTOPRAZOLE 40 MG TABLET PO SCH (08:11)
[2020-06-20] MEDS: ASCORBIC ACID 500 MG TABLET PO SCH (08:11)
[2020-06-20] MEDS: SODIUM BICARBONATE 650 MG TABLET PO SCH (08:11)
[2020-06-20] MEDS: MAGNESIUM OXIDE 400 MG TABLET PO SCH (08:11)
[2020-06-20] MEDS: FERROUS SULFATE 325 MG TABLET PO SCH (08:11)
[2020-06-20] MEDS: APIXABAN 2.5 MG TABLET PO SCH (08:12)
[2020-06-20] MEDS: FAMOTIDINE 20 MG TABLET PO SCH (08:12)
[2020-06-20] MEDS: DEXAMETHASONE 4 MG/1 ML VIAL IV SCH (08:12)
[2020-06-20] MEDS: MENTHOL/ZINC OXIDE OINT 71 GM JAR TOP SCH (08:13)
[2020-06-20] MEDS: CHOLECALCIFEROL 1,000 UNIT TABLET PO SCH (08:14)
[2020-06-20 11:18] VITALS: BP 159/75
== END 2020-06-20 17:17 | disposition swing bed (61) | DRG 871 ==
LOC: EDUNIT# → EDBD → N.ED 10:31 → SUATTDRO 13:57 → N.EDINP 13:57 → N.CC 14:52 → N.2E 06-12 16:11
PROVIDERS: ADMIT Internal Medicine; ATTEND Internal Medicine

== ENCOUNTER 2020-07-05 04:00 | Inpatient (IN) ==
[2020-07-05] MEDS ORDERED: SODIUM CHLORIDE 0.9% 500 ML IV STA (04:45)
[2020-07-05 05:02] LABS: Basophils # 0.1 10*3/uL (0.0-0.2); Basophils % 1.1 % (0.0-0.8); Eosinophils # 0.8 10*3/uL (0.0-0.87); Eosinophils % 17.3 % (0.00-10.9); Hematocrit 31.8 VOL% (42.0-52.0); Hemoglobin 10.1 GM/DL (14.0-18.0); Immature Granulocytes % 1.7 %; Immature Granulocytes Absolute 0.08 #; Lymphocytes # 0.8 10*3/uL (1.4-4.0); Lymphocytes % 16.6 % (21.2-54.2); Mean Corpuscular HGB Conc 31.8 GM/DL (32-36); Mean Corpuscular Volume 90.9 FL (87-102); Mean Platelet Volume 10.8 FL (9.6-12.0); Monocytes % 12.2 % (1.7-12.7); Neutrophils % 51.1 % (38.7-73.9); Platelet Count 122 T/CUMM (130-400); Red Cell Distribution Width 18.2 % (9.3-17.3); White Blood Count 4.8 T/CUMM (4-12)
[2020-07-05 05:08] LABS: Albumin 1.6 G/DL (3.4-5.0); Bilirubin,Total 0.6 MG/DL (0.2-1.0); Calcium 8.4 MG/DL (8.5-10.1); Osmolality,Calculated 286.1 MOS/KG (273-304); Potassium 4.5 MMOL/L (3.5-5.1); Total Protein 5.3 G/DL (6.4-8.3)
[2020-07-05 05:14] LABS: INR 1.2
[2020-07-05 05:17] LABS: PT Patient Result 12.3 SECS (9.8-11.9)
[2020-07-05 05:32] LABS: Band Neutrophils 5 % (0-10); Eosinophils 11 % (0-10); Lymphocytes 12 % (20-55); Myelocytes 2 %; Segmented Neutrophils 57 % (50-85); Total Cells Counted 100
[2020-07-05 05:34] LABS: Hypochromasia 2+; Microcytosis 1+
[2020-07-05 05:35] LABS: Platelet Estimate Adequate
[2020-07-05 05:36] LABS: Reactive Lymphocytes 1+
[2020-07-05 05:40] LABS: Bacteria,Urine Occasional /HPF (Few); Bilirubin,Urine Negative (Negative); Blood, Urine Negative (Negative); Glucose,Urine (UA) Negative (Negative); Hyaline Casts,Urine 9 /LPF (0-3); Ketones,Urine Negative (Negative); Nitrite,Urine Negative (Negative); Protein,Urine Negative; RBC,Urine 2 /HPF (0-4); Urine Appearance CLEAR (Clear); Urine Color Straw (Yellow); Urine Specific Gravity 1.006 (1.001-1.035); Urine Urobilinogen < 2.0 EU/DL (0.2-1.0); WBC,Urine <1 /HPF (0-6)
[2020-07-05 05:43] LABS: Barbiturates Screen,Urine Negative (Negative); Benzodiazepines Screen,Urine Negative (Negative); Cannabinoid Screen,Urine Negative (Negative); Opiate Screen,Urine Negative (Negative); Phencyclidine Screen,Urine Negative (Negative)
[2020-07-05] MEDS ORDERED: ACETAMINOPHEN 325 MG TABLET PO PRN (08:12)
[2020-07-05] MEDS ORDERED: SODIUM CHLORIDE 0.9% 1,000 ML IV SCH (08:12)
[2020-07-05] MEDS ORDERED: GLUCAGON 1 MG VIAL IM PRN (08:12)
[2020-07-05] MEDS ORDERED: ONDANSETRON 4 MG/2 ML VIAL IV PRN (08:12)
[2020-07-05] MEDS ORDERED: MORPHINE 4 MG/1 ML VIAL IV PRN (08:12)
[2020-07-05] MEDS ORDERED: CABOZANTINIB 40 MG PO SCH (08:45)
[2020-07-05] MEDS: ALBUMIN 25% 25 GM in PREMIX 1 EACH IV SCH ×2 (11:02→16:44)
[2020-07-05] MEDS: INSULIN REGULAR 100 UNIT/ML SUBCUT SCH ×3 (11:02→18:35)
[2020-07-05] MEDS: MENTHOL/ZINC OXIDE OINT 71 GM JAR TOP SCH ×2 (12:25→20:31)
[2020-07-05] MEDS: levETIRAcetam 500 MG TABLET PO SCH ×2 (12:30→20:29)
[2020-07-05] MEDS: SODIUM BICARBONATE 650 MG TABLET PO SCH ×2 (12:31→20:30)
[2020-07-05] MEDS: APIXABAN 2.5 MG TABLET PO SCH ×2 (12:36→20:30)
[2020-07-05] MEDS: DOCUSATE SODIUM 100 MG CAPSULE PO SCH ×2 (12:38→20:29)
[2020-07-05] MEDS: PANTOPRAZOLE 40 MG TABLET PO SCH (12:39)
[2020-07-05] MEDS: ASCORBIC ACID 500 MG TABLET PO SCH ×2 (12:39→20:29)
[2020-07-05] MEDS: DEXTROSE 50% 25 GM/50 ML VIAL IV PRN (13:41)
[2020-07-05] MEDS ORDERED: DEXTROSE 5% 1,000 ML IV SCH (16:30)
[2020-07-05] MEDS ORDERED: DEXTROSE 5% NACL 0.9% 1,000 ML IV SCH (16:30)
[2020-07-05] MEDS: SIMVASTATIN 40 MG TABLET PO SCH (20:30)
[2020-07-05] MEDS: TAMSULOSIN 0.4 MG CAPSULE PO SCH (20:30)
[2020-07-06] MEDS: DEXTROSE 50% 25 GM/50 ML VIAL IV PRN (00:01)
[2020-07-06] MEDS: INSULIN REGULAR 100 UNIT/ML SUBCUT SCH ×4 (02:00→19:09)
[2020-07-06] MEDS: ALBUMIN 25% 25 GM in PREMIX 1 EACH IV SCH ×3 (02:10→16:55)
[2020-07-06] MEDS: LEVOTHYROXINE 125 MCG TABLET PO SCH (05:44)
[2020-07-06 06:18] LABS: Basophils % 0.6 % (0.0-0.8); Eosinophils # 0.7 10*3/uL (0.0-0.87); Eosinophils % 13.8 % (0.00-10.9); Hemoglobin 9.1 GM/DL (14.0-18.0); Immature Granulocytes Absolute 0.05 #; Lymphocytes # 0.7 10*3/uL (1.4-4.0); Lymphocytes % 13.6 % (21.2-54.2); Mean Corpuscular HGB Conc 32.5 GM/DL (32-36); Mean Corpuscular Volume 91.2 FL (87-102); Mean Platelet Volume 9.6 FL (9.6-12.0); Monocytes % 12.4 % (1.7-12.7); Neutrophils % 58.6 % (38.7-73.9); Platelet Count 103 T/CUMM (130-400); Red Blood Count 3.07 MC/CUMM (3.8-5.5); White Blood Count 5.1 T/CUMM (4-12)
[2020-07-06 06:37] LABS: Calcium 8.6 MG/DL (8.5-10.1); Osmolality,Calculated 291.4 MOS/KG (273-304); Potassium 3.4 MMOL/L (3.5-5.1)
[2020-07-06 06:39] LABS: Bilirubin,Total 0.6 MG/DL (0.2-1.0); Calcium 8.5 MG/DL (8.5-10.1); Osmolality,Calculated 288.5 MOS/KG (273-304); Potassium 3.4 MMOL/L (3.5-5.1); Total Protein 4.7 G/DL (6.4-8.3)
[2020-07-06 06:49] LABS: Band Neutrophils 1 % (0-10); Eosinophils 13 % (0-10); Lymphocytes 8 % (20-55); Platelet Estimate Adequate; Segmented Neutrophils 68 % (50-85); Total Cells Counted 100
[2020-07-06 06:50] LABS: Hypochromasia Slight
[2020-07-06] MEDS: SODIUM BICARBONATE 650 MG TABLET PO SCH ×2 (08:33→22:17)
[2020-07-06] MEDS: ASCORBIC ACID 500 MG TABLET PO SCH ×2 (08:33→22:17)
[2020-07-06] MEDS: DOCUSATE SODIUM 100 MG CAPSULE PO SCH ×2 (08:33→22:16)
[2020-07-06] MEDS: PANTOPRAZOLE 40 MG TABLET PO SCH (08:33)
[2020-07-06] MEDS: levETIRAcetam 500 MG TABLET PO SCH ×2 (08:34→22:16)
[2020-07-06] MEDS: APIXABAN 2.5 MG TABLET PO SCH ×2 (08:34→22:16)
[2020-07-06] MEDS ORDERED: VANCOMYCIN INJ 1,500 MG in SODIUM CHLORIDE 0.9% 500 ML IV PRN (09:03)
[2020-07-06] MEDS: DEXTROSE 10% 1,000 ML IV SCH (10:24)
[2020-07-06] MEDS ORDERED: VANCOMYCIN INJ 1,500 MG in SODIUM CHLORIDE 0.9% 500 ML IV ONE (11:00)
[2020-07-06] MEDS: MENTHOL/ZINC OXIDE OINT 71 GM JAR TOP SCH ×2 (14:50→22:16)
[2020-07-06] MEDS: POTASSIUM CHLORIDE 20 MEQ TABLET PO PRN ×2 (17:16→22:17)
[2020-07-06] MEDS: TAMSULOSIN 0.4 MG CAPSULE PO SCH (22:16)
[2020-07-06] MEDS: SIMVASTATIN 40 MG TABLET PO SCH (22:17)
[2020-07-07] MEDS: INSULIN REGULAR 100 UNIT/ML SUBCUT SCH ×4 (00:30→17:28)
[2020-07-07] MEDS: ALBUMIN 25% 25 GM in PREMIX 1 EACH IV SCH (01:30)
[2020-07-07] MEDS: DEXTROSE 10% 1,000 ML IV SCH (04:58)
[2020-07-07] MEDS: LEVOTHYROXINE 125 MCG TABLET PO SCH (05:40)
[2020-07-07] MEDS: POTASSIUM CHLORIDE 20 MEQ TABLET PO PRN (05:47)
[2020-07-07 06:01] LABS: Calcium 8.4 MG/DL (8.5-10.1); Potassium 4.2 MMOL/L (3.5-5.1)
[2020-07-07] MEDS: SODIUM BICARBONATE 650 MG TABLET PO SCH ×2 (08:40→21:15)
[2020-07-07] MEDS: DOCUSATE SODIUM 100 MG CAPSULE PO SCH ×2 (08:42→21:15)
[2020-07-07] MEDS: PANTOPRAZOLE 40 MG TABLET PO SCH (08:43)
[2020-07-07] MEDS: APIXABAN 2.5 MG TABLET PO SCH ×2 (08:44→21:16)
[2020-07-07] MEDS: ASCORBIC ACID 500 MG TABLET PO SCH ×2 (08:45→21:16)
[2020-07-07] MEDS: levETIRAcetam 500 MG TABLET PO SCH ×2 (08:45→21:16)
[2020-07-07] MEDS: DEXTROSE 5% NACL 0.45% 1,000 ML IV SCH (10:21)
[2020-07-07] MEDS: MENTHOL/ZINC OXIDE OINT 71 GM JAR TOP SCH ×2 (10:29→21:17)
[2020-07-07] MEDS: TAMSULOSIN 0.4 MG CAPSULE PO SCH (21:15)
[2020-07-07] MEDS: SIMVASTATIN 40 MG TABLET PO SCH (21:16)
[2020-07-08] MEDS: INSULIN REGULAR 100 UNIT/ML SUBCUT SCH ×2 (01:01→05:30)
[2020-07-08] MEDS: LEVOTHYROXINE 125 MCG TABLET PO SCH (05:30)
[2020-07-08] MEDS: DEXTROSE 5% NACL 0.45% 1,000 ML IV SCH (06:29)
[2020-07-08 06:41] LABS: Osmolality,Calculated 284.8 MOS/KG (273-304); Potassium 4.2 MMOL/L (3.5-5.1)
[2020-07-08] MEDS: ASCORBIC ACID 500 MG TABLET PO SCH ×2 (09:01→21:59)
[2020-07-08] MEDS: DOCUSATE SODIUM 100 MG CAPSULE PO SCH ×2 (09:01→21:59)
[2020-07-08] MEDS: SODIUM BICARBONATE 650 MG TABLET PO SCH ×2 (09:01→21:58)
[2020-07-08] MEDS: APIXABAN 2.5 MG TABLET PO SCH ×2 (09:02→21:58)
[2020-07-08] MEDS: PANTOPRAZOLE 40 MG TABLET PO SCH (09:02)
[2020-07-08] MEDS: levETIRAcetam 500 MG TABLET PO SCH ×2 (09:02→21:59)
[2020-07-08] MEDS: MENTHOL/ZINC OXIDE OINT 71 GM JAR TOP SCH ×2 (09:02→21:59)
[2020-07-08] MEDS: LINEZOLID INJ 600 MG in PREMIX 1 EACH IV SCH ×2 (09:59→21:58)
[2020-07-08] MEDS: MAGNESIUM OXIDE 400 MG TABLET PO SCH (09:59)
[2020-07-08] MEDS: INSULIN LISPRO 100 UNIT/ML SUBCUT SCH ×2 (14:25→16:38)
[2020-07-08] MEDS: SIMVASTATIN 40 MG TABLET PO SCH (21:58)
[2020-07-08] MEDS: TAMSULOSIN 0.4 MG CAPSULE PO SCH (21:59)
[2020-07-09] MEDS: DEXTROSE 5% NACL 0.45% 1,000 ML IV SCH (05:52)
[2020-07-09] MEDS: LEVOTHYROXINE 125 MCG TABLET PO SCH (05:58)
[2020-07-09 06:34] LABS: Basophils % 0.8 % (0.0-0.8); Eosinophils # 0.9 10*3/uL (0.0-0.87); Eosinophils % 19.5 % (0.00-10.9); Hematocrit 27.3 VOL% (42.0-52.0); Hemoglobin 8.8 GM/DL (14.0-18.0); Immature Granulocytes % 3.7 %; Immature Granulocytes Absolute 0.18 #; Lymphocytes # 0.8 10*3/uL (1.4-4.0); Lymphocytes % 15.8 % (21.2-54.2); Mean Corpuscular HGB Conc 32.2 GM/DL (32-36); Mean Corpuscular Volume 91.6 FL (87-102); Mean Platelet Volume 9.5 FL (9.6-12.0); Monocytes % 17.4 % (1.7-12.7); Neutrophils % 42.8 % (38.7-73.9); Platelet Count 122 T/CUMM (130-400); Red Blood Count 2.98 MC/CUMM (3.8-5.5); Red Cell Distribution Width 17.7 % (9.3-17.3); White Blood Count 4.8 T/CUMM (4-12)
[2020-07-09 06:52] LABS: Calcium 8.9 MG/DL (8.5-10.1); Osmolality,Calculated 281.1 MOS/KG (273-304); Potassium 4.5 MMOL/L (3.5-5.1)
[2020-07-09 07:06] LABS: Eosinophils 25 % (0-10); Hypochromasia 1+; Lymphocytes 18 % (20-55); Microcytosis 1+; Segmented Neutrophils 41 % (50-85); Total Cells Counted 100
[2020-07-09] MEDS: levETIRAcetam 500 MG TABLET PO SCH ×2 (09:12→21:39)
[2020-07-09] MEDS: DOCUSATE SODIUM 100 MG CAPSULE PO SCH ×2 (09:12→21:38)
[2020-07-09] MEDS: PANTOPRAZOLE 40 MG TABLET PO SCH (09:12)
[2020-07-09] MEDS: SODIUM BICARBONATE 650 MG TABLET PO SCH ×2 (09:12→21:38)
[2020-07-09] MEDS: MAGNESIUM OXIDE 400 MG TABLET PO SCH (09:12)
[2020-07-09] MEDS: ASCORBIC ACID 500 MG TABLET PO SCH ×2 (09:12→21:38)
[2020-07-09] MEDS: APIXABAN 2.5 MG TABLET PO SCH ×2 (09:12→21:39)
[2020-07-09] MEDS: MENTHOL/ZINC OXIDE OINT 71 GM JAR TOP SCH ×2 (09:15→21:39)
[2020-07-09] MEDS: LINEZOLID INJ 600 MG in PREMIX 1 EACH IV SCH ×2 (09:16→21:36)
[2020-07-09] MEDS: INSULIN LISPRO 100 UNIT/ML SUBCUT SCH ×4 (09:16→17:51)
[2020-07-09] MEDS: SIMVASTATIN 40 MG TABLET PO SCH (21:39)
[2020-07-09] MEDS: TAMSULOSIN 0.4 MG CAPSULE PO SCH (21:39)
[2020-07-10] MEDS: INSULIN LISPRO 100 UNIT/ML SUBCUT SCH ×7 (01:35→19:22)
[2020-07-10] MEDS: LEVOTHYROXINE 125 MCG TABLET PO SCH (05:44)
[2020-07-10 06:08] LABS: Calcium 8.7 MG/DL (8.5-10.1); Potassium 4.7 MMOL/L (3.5-5.1)
[2020-07-10] MEDS: ASCORBIC ACID 500 MG TABLET PO SCH ×2 (09:46→22:04)
[2020-07-10] MEDS: SODIUM BICARBONATE 650 MG TABLET PO SCH ×2 (09:46→22:03)
[2020-07-10] MEDS: levETIRAcetam 250 MG TABLET PO SCH (09:47)
[2020-07-10] MEDS: DOCUSATE SODIUM 100 MG CAPSULE PO SCH ×2 (09:48→22:03)
[2020-07-10] MEDS: PANTOPRAZOLE 40 MG TABLET PO SCH (09:49)
[2020-07-10] MEDS: MAGNESIUM OXIDE 400 MG TABLET PO SCH (09:49)
[2020-07-10] MEDS: LINEZOLID INJ 600 MG in PREMIX 1 EACH IV SCH ×2 (09:49→22:05)
[2020-07-10] MEDS: MENTHOL/ZINC OXIDE OINT 71 GM JAR TOP SCH ×2 (10:30→22:05)
[2020-07-10] MEDS: APIXABAN 2.5 MG TABLET PO SCH (11:39)
[2020-07-10] MEDS ORDERED: LIDOCAINE 1%/EPI INJ 20 ML VIAL ONE (15:36)
[2020-07-10] MEDS ORDERED: LIDOCAINE 1% 20 ML VIAL ONE (15:36)
[2020-07-10] MEDS ORDERED: BUPIVACAINE MPF 0.25% 30 ML VIAL ONE (15:36)
[2020-07-10] MEDS ORDERED: TISSUE ADHESIVE 1 EACH APPLICATOR TOP ONE (16:47)
[2020-07-10] MEDS ORDERED: ETOMIDATE 40 MG/20 ML VIAL IV ONE (17:08)
[2020-07-10] MEDS ORDERED: LIDOCAINE 2% 5 ML VIAL ONE (17:08)
[2020-07-10] MEDS ORDERED: SODIUM CHLORIDE 0.9% 1,000 ML IV ONE (17:08)
[2020-07-10] MEDS: TAMSULOSIN 0.4 MG CAPSULE PO SCH (22:04)
[2020-07-10] MEDS: SIMVASTATIN 40 MG TABLET PO SCH (22:04)
[2020-07-10] MEDS: levETIRAcetam 500 MG TABLET PO SCH (22:05)
[2020-07-11] MEDS: INSULIN LISPRO 100 UNIT/ML SUBCUT SCH ×6 (01:11→17:55)
[2020-07-11] MEDS: LEVOTHYROXINE 125 MCG TABLET PO SCH (05:52)
[2020-07-11 06:52] LABS: Basophils # 0.1 10*3/uL (0.0-0.2); Basophils % 1.1 % (0.0-0.8); Eosinophils # 0.9 10*3/uL (0.0-0.87); Eosinophils % 16.7 % (0.00-10.9); Hematocrit 27.7 VOL% (42.0-52.0); Hemoglobin 8.5 GM/DL (14.0-18.0); Immature Granulocytes Absolute 0.16 #; Lymphocytes # 0.9 10*3/uL (1.4-4.0); Lymphocytes % 16.3 % (21.2-54.2); Mean Corpuscular HGB Conc 30.7 GM/DL (32-36); Mean Corpuscular Volume 93.6 FL (87-102); Mean Platelet Volume 10.6 FL (9.6-12.0); Monocytes % 16.1 % (1.7-12.7); Neutrophils % 46.8 % (38.7-73.9); Platelet Count 141 T/CUMM (130-400); Red Blood Count 2.96 MC/CUMM (3.8-5.5); Red Cell Distribution Width 17.9 % (9.3-17.3); White Blood Count 5.3 T/CUMM (4-12)
[2020-07-11 07:19] LABS: Calcium 8.3 MG/DL (8.5-10.1); Osmolality,Calculated 283.7 MOS/KG (273-304); Potassium 4.5 MMOL/L (3.5-5.1)
[2020-07-11 07:22] LABS: Eosinophils 28 % (0-10); Hypochromasia 1+; Lymphocytes 15 % (20-55); Microcytosis 1+; Platelet Estimate Adequate; Segmented Neutrophils 47 % (50-85); Total Cells Counted 100
[2020-07-11] MEDS: levETIRAcetam 250 MG TABLET PO SCH (08:44)
[2020-07-11] MEDS: SODIUM BICARBONATE 650 MG TABLET PO SCH ×2 (08:44→21:37)
[2020-07-11] MEDS: PANTOPRAZOLE 40 MG TABLET PO SCH (08:44)
[2020-07-11] MEDS: ASCORBIC ACID 500 MG TABLET PO SCH ×2 (08:44→21:38)
[2020-07-11] MEDS: MAGNESIUM OXIDE 400 MG TABLET PO SCH (08:45)
[2020-07-11] MEDS: DOCUSATE SODIUM 100 MG CAPSULE PO SCH ×2 (08:45→21:40)
[2020-07-11] MEDS: LINEZOLID INJ 600 MG in PREMIX 1 EACH IV SCH ×2 (09:04→21:39)
[2020-07-11] MEDS: MENTHOL/ZINC OXIDE OINT 71 GM JAR TOP SCH ×2 (14:57→21:40)
[2020-07-11] MEDS: TAMSULOSIN 0.4 MG CAPSULE PO SCH (21:38)
[2020-07-11] MEDS: levETIRAcetam 500 MG TABLET PO SCH (21:39)
[2020-07-11] MEDS: SIMVASTATIN 40 MG TABLET PO SCH (21:39)
[2020-07-12 06:01] LABS: Basophils # 0.1 10*3/uL (0.0-0.2); Basophils % 1.4 % (0.0-0.8); Eosinophils % 17.1 % (0.00-10.9); Hematocrit 26.5 VOL% (42.0-52.0); Hemoglobin 8.5 GM/DL (14.0-18.0); Immature Granulocytes % 3.9 %; Immature Granulocytes Absolute 0.22 #; Lymphocytes # 0.8 10*3/uL (1.4-4.0); Lymphocytes % 14.6 % (21.2-54.2); Mean Corpuscular HGB Conc 32.1 GM/DL (32-36); Mean Platelet Volume 10.2 FL (9.6-12.0); Monocytes % 18.8 % (1.7-12.7); Neutrophils % 44.2 % (38.7-73.9); Platelet Count 134 T/CUMM (130-400); Red Blood Count 2.88 MC/CUMM (3.8-5.5); Red Cell Distribution Width 17.8 % (9.3-17.3); White Blood Count 5.6 T/CUMM (4-12)
[2020-07-12 06:57] LABS: Atypical Lymphocytes Few; Band Neutrophils 2 % (0-10); Eosinophils 17 % (0-10); Lymphocytes 15 % (20-55); Myelocytes 1 %; Segmented Neutrophils 49 % (50-85); Total Cells Counted 100
[2020-07-12 06:59] LABS: Hypochromasia 1+; Microcytosis 1+
[2020-07-12 07:00] LABS: Ovalocytes Slight; Platelet Estimate Adequate
[2020-07-12] MEDS: LEVOTHYROXINE 125 MCG TABLET PO SCH (07:14)
[2020-07-12] MEDS: INSULIN LISPRO 100 UNIT/ML SUBCUT SCH ×3 (09:28→16:50)
[2020-07-12] MEDS: LINEZOLID INJ 600 MG in PREMIX 1 EACH IV SCH ×2 (10:35→21:59)
[2020-07-12] MEDS: MAGNESIUM OXIDE 400 MG TABLET PO SCH (10:46)
[2020-07-12] MEDS: ASCORBIC ACID 500 MG TABLET PO SCH ×2 (10:46→21:59)
[2020-07-12] MEDS: DOCUSATE SODIUM 100 MG CAPSULE PO SCH ×2 (10:46→21:59)
[2020-07-12] MEDS: levETIRAcetam 250 MG TABLET PO SCH (10:46)
[2020-07-12] MEDS: PANTOPRAZOLE 40 MG TABLET PO SCH (10:46)
[2020-07-12] MEDS: SODIUM BICARBONATE 650 MG TABLET PO SCH ×2 (10:46→21:59)
[2020-07-12] MEDS: MENTHOL/ZINC OXIDE OINT 71 GM JAR TOP SCH ×2 (10:49→22:00)
[2020-07-12] MEDS: ALBUTEROL/IPRATROPIUM 3 ML NEB RESP TX SCH ×2 (15:36→19:30)
[2020-07-12] MEDS: methylPREDNISolone SOD SUC 40 MG/1 ML VIAL IV SCH (16:44)
[2020-07-12] MEDS: levETIRAcetam 500 MG TABLET PO SCH (21:59)
[2020-07-12] MEDS: SIMVASTATIN 40 MG TABLET PO SCH (21:59)
[2020-07-12] MEDS: TAMSULOSIN 0.4 MG CAPSULE PO SCH (21:59)
[2020-07-13] MEDS: ALBUTEROL/IPRATROPIUM 3 ML NEB RESP TX SCH ×4 (00:30→19:27)
[2020-07-13] MEDS: methylPREDNISolone SOD SUC 40 MG/1 ML VIAL IV SCH (03:25)
[2020-07-13 05:58] LABS: Basophils % 0.5 % (0.0-0.8); Eosinophils % 0.3 % (0.00-10.9); Hematocrit 29.1 VOL% (42.0-52.0); Hemoglobin 9.2 GM/DL (14.0-18.0); Immature Granulocytes % 4.3 %; Immature Granulocytes Absolute 0.26 #; Lymphocytes # 0.4 10*3/uL (1.4-4.0); Lymphocytes % 5.9 % (21.2-54.2); Mean Corpuscular HGB Conc 31.6 GM/DL (32-36); Mean Corpuscular Volume 92.4 FL (87-102); Mean Platelet Volume 10.1 FL (9.6-12.0); Monocytes % 1.5 % (1.7-12.7); Neutrophils % 87.5 % (38.7-73.9); Platelet Count 153 T/CUMM (130-400); Red Blood Count 3.15 MC/CUMM (3.8-5.5); Red Cell Distribution Width 17.6 % (9.3-17.3); White Blood Count 6.1 T/CUMM (4-12)
[2020-07-13 06:27] LABS: Calcium 8.6 MG/DL (8.5-10.1); Osmolality,Calculated 288.5 MOS/KG (273-304); Potassium 4.7 MMOL/L (3.5-5.1)
[2020-07-13] MEDS: LEVOTHYROXINE 125 MCG TABLET PO SCH (06:33)
[2020-07-13] MEDS: INSULIN LISPRO 100 UNIT/ML SUBCUT SCH ×5 (08:04→18:46)
[2020-07-13] MEDS: LINEZOLID INJ 600 MG in PREMIX 1 EACH IV SCH ×2 (08:38→21:45)
[2020-07-13] MEDS: PANTOPRAZOLE 40 MG TABLET PO SCH (10:02)
[2020-07-13] MEDS: ASCORBIC ACID 500 MG TABLET PO SCH ×2 (10:02→21:42)
[2020-07-13] MEDS: SODIUM BICARBONATE 650 MG TABLET PO SCH ×2 (10:02→21:42)
[2020-07-13] MEDS: levETIRAcetam 250 MG TABLET PO SCH (10:02)
[2020-07-13] MEDS: DOCUSATE SODIUM 100 MG CAPSULE PO SCH ×2 (10:03→21:42)
[2020-07-13] MEDS: MENTHOL/ZINC OXIDE OINT 71 GM JAR TOP SCH ×2 (10:03→21:42)
[2020-07-13] MEDS: MAGNESIUM OXIDE 400 MG TABLET PO SCH (10:03)
[2020-07-13] MEDS ORDERED: methylPREDNISolone SOD SUC 40 MG/1 ML VIAL IV SCH (14:00)
[2020-07-13] MEDS: INSULIN GLARGINE 100 UNIT/ML SUBCUT SCH (21:42)
[2020-07-13] MEDS: levETIRAcetam 500 MG TABLET PO SCH (21:42)
[2020-07-13] MEDS: TAMSULOSIN 0.4 MG CAPSULE PO SCH (21:42)
[2020-07-13] MEDS: SIMVASTATIN 40 MG TABLET PO SCH (21:45)
[2020-07-14] MEDS: ALBUTEROL/IPRATROPIUM 3 ML NEB RESP TX SCH ×5 (01:11→19:45)
[2020-07-14] MEDS: LEVOTHYROXINE 125 MCG TABLET PO SCH (05:54)
[2020-07-14 06:03] LABS: Basophils % 0.2 % (0.0-0.8); Eosinophils % 0.1 % (0.00-10.9); Hematocrit 24.4 VOL% (42.0-52.0); Immature Granulocytes % 1.5 %; Immature Granulocytes Absolute 0.23 #; Lymphocytes # 0.7 10*3/uL (1.4-4.0); Lymphocytes % 4.5 % (21.2-54.2); Mean Corpuscular HGB Conc 32.8 GM/DL (32-36); Mean Platelet Volume 10.2 FL (9.6-12.0); Neutrophils % 85.7 % (38.7-73.9); Platelet Count 160 T/CUMM (130-400); Red Blood Count 2.71 MC/CUMM (3.8-5.5); Red Cell Distribution Width 17.9 % (9.3-17.3)
[2020-07-14 06:04] LABS: White Blood Count 15.2 T/CUMM (4-12)
[2020-07-14 06:07] LABS: Calcium 8.4 MG/DL (8.5-10.1); Osmolality,Calculated 286.4 MOS/KG (273-304); Potassium 5.1 MMOL/L (3.5-5.1)
[2020-07-14 06:10] LABS: Alanine Aminotransferase 19 U/L (16-61); Albumin 2.3 G/DL (3.4-5.0); Alkaline Phosphatase 104 U/L (45-117); Aspartate Amino Transferase 14 U/L (0-37); Bilirubin,Indirect 0.3 MG/DL (0.0-1.0); Bilirubin,Total < 0.39 MG/DL (0.2-1.0); Total Protein 5.1 G/DL (6.4-8.3)
[2020-07-14 06:51] LABS: Band Neutrophils 5 % (0-10); Lymphocytes 6 % (20-55); Metamyelocytes 2 %; Segmented Neutrophils 79 % (50-85); Total Cells Counted 100
[2020-07-14 06:52] LABS: Anisocytosis 1+; Hypochromasia 2+; Macrocytosis 1+; Ovalocytes 2+
[2020-07-14] MEDS: INSULIN LISPRO 100 UNIT/ML SUBCUT SCH ×3 (07:45→16:19)
[2020-07-14] MEDS: LINEZOLID INJ 600 MG in PREMIX 1 EACH IV SCH ×2 (07:47→21:12)
[2020-07-14] MEDS: ASCORBIC ACID 500 MG TABLET PO SCH ×2 (10:20→21:13)
[2020-07-14] MEDS: DOCUSATE SODIUM 100 MG CAPSULE PO SCH ×2 (10:20→21:13)
[2020-07-14] MEDS: PANTOPRAZOLE 40 MG TABLET PO SCH (10:20)
[2020-07-14] MEDS: levETIRAcetam 250 MG TABLET PO SCH (10:20)
[2020-07-14] MEDS: SODIUM BICARBONATE 650 MG TABLET PO SCH ×2 (10:20→21:13)
[2020-07-14] MEDS: MAGNESIUM OXIDE 400 MG TABLET PO SCH (10:20)
[2020-07-14] MEDS: MENTHOL/ZINC OXIDE OINT 71 GM JAR TOP SCH ×2 (10:21→21:13)
[2020-07-14] MEDS ORDERED: MAGNESIUM HYDROXIDE SUSP 30 ML UDCUP PO PRN (12:52)
[2020-07-14] MEDS: BUDESONIDE 0.25 MG/2 ML NEB RESP TX SCH ×2 (13:27→19:45)
[2020-07-14] MEDS ORDERED: VANCOMYCIN INJ 1,500 MG in SODIUM CHLORIDE 0.9% 500 ML IV ONE (15:00)
[2020-07-14] MEDS: BENZONATATE 100 MG CAPSULE PO SCH ×2 (15:26→21:13)
[2020-07-14] MEDS: FERROUS SULFATE 325 MG TABLET PO SCH (15:26)
[2020-07-14] MEDS: SODIUM CHLORIDE 0.9% 1,000 ML IV SCH (18:24)
[2020-07-14] MEDS: INSULIN GLARGINE 100 UNIT/ML SUBCUT SCH (21:13)
[2020-07-14] MEDS: TAMSULOSIN 0.4 MG CAPSULE PO SCH (21:13)
[2020-07-14] MEDS: SIMVASTATIN 40 MG TABLET PO SCH (21:13)
[2020-07-14] MEDS: levETIRAcetam 500 MG TABLET PO SCH (21:14)
[2020-07-15] MEDS: ALBUTEROL/IPRATROPIUM 3 ML NEB RESP TX SCH ×3 (00:57→18:41)
[2020-07-15] MEDS: SODIUM CHLORIDE 0.9% 1,000 ML IV SCH (05:11)
[2020-07-15] MEDS: LEVOTHYROXINE 125 MCG TABLET PO SCH (05:38)
[2020-07-15 06:12] LABS: Basophils # 0.1 10*3/uL (0.0-0.2); Basophils % 0.6 % (0.0-0.8); Eosinophils # 0.5 10*3/uL (0.0-0.87); Eosinophils % 4.7 % (0.00-10.9); Hematocrit 23.9 VOL% (42.0-52.0); Hemoglobin 7.6 GM/DL (14.0-18.0); Immature Granulocytes % 1.9 %; Lymphocytes # 1.1 10*3/uL (1.4-4.0); Lymphocytes % 10.2 % (21.2-54.2); Mean Corpuscular HGB Conc 31.8 GM/DL (32-36); Mean Corpuscular Volume 91.6 FL (87-102); Mean Platelet Volume 10.1 FL (9.6-12.0); Monocytes % 8.8 % (1.7-12.7); Neutrophils % 73.8 % (38.7-73.9); Platelet Count 137 T/CUMM (130-400); Red Blood Count 2.61 MC/CUMM (3.8-5.5); Red Cell Distribution Width 18.2 % (9.3-17.3); White Blood Count 10.7 T/CUMM (4-12)
[2020-07-15 06:47] LABS: Calcium 8.3 MG/DL (8.5-10.1); Osmolality,Calculated 275.7 MOS/KG (273-304); Potassium 4.6 MMOL/L (3.5-5.1)
[2020-07-15] MEDS: BUDESONIDE 0.25 MG/2 ML NEB RESP TX SCH ×2 (07:30→18:41)
[2020-07-15] MEDS: INSULIN LISPRO 100 UNIT/ML SUBCUT SCH ×3 (07:51→16:05)
[2020-07-15] MEDS: PANTOPRAZOLE 40 MG TABLET PO SCH (08:38)
[2020-07-15] MEDS: MAGNESIUM OXIDE 400 MG TABLET PO SCH (08:38)
[2020-07-15] MEDS: SODIUM BICARBONATE 650 MG TABLET PO SCH ×2 (08:38→21:49)
[2020-07-15] MEDS: DOCUSATE SODIUM 100 MG CAPSULE PO SCH ×2 (08:38→21:49)
[2020-07-15] MEDS: levETIRAcetam 250 MG TABLET PO SCH (08:39)
[2020-07-15] MEDS: ACETAMINOPHEN 325 MG TABLET PO PRN (08:39)
[2020-07-15] MEDS: BENZONATATE 100 MG CAPSULE PO SCH ×3 (08:39→21:49)
[2020-07-15] MEDS: ASCORBIC ACID 500 MG TABLET PO SCH ×2 (08:39→21:49)
[2020-07-15] MEDS: MENTHOL/ZINC OXIDE OINT 71 GM JAR TOP SCH ×2 (08:40→21:49)
[2020-07-15] MEDS: FERROUS SULFATE 325 MG TABLET PO SCH (08:40)
[2020-07-15] MEDS: LINEZOLID INJ 600 MG in PREMIX 1 EACH IV SCH ×2 (08:40→21:49)
[2020-07-15] MEDS ORDERED: SODIUM CHLORIDE 0.9% 1,000 ML IV PRN ×2 (11:06→11:30)
[2020-07-15] MEDS ORDERED: FUROSEMIDE 40 MG/4 ML VIAL IV ONE (16:00)
[2020-07-15] MEDS: SIMVASTATIN 40 MG TABLET PO SCH (21:49)
[2020-07-15] MEDS: TAMSULOSIN 0.4 MG CAPSULE PO SCH (21:49)
[2020-07-15] MEDS: levETIRAcetam 500 MG TABLET PO SCH (21:49)
[2020-07-16] MEDS: ALBUTEROL/IPRATROPIUM 3 ML NEB RESP TX SCH ×5 (01:34→18:39)
[2020-07-16] MEDS: LEVOTHYROXINE 125 MCG TABLET PO SCH (05:54)
[2020-07-16 06:11] LABS: Basophils # 0.1 10*3/uL (0.0-0.2); Basophils % 0.6 % (0.0-0.8); Eosinophils # 0.5 10*3/uL (0.0-0.87); Eosinophils % 6.1 % (0.00-10.9); Hematocrit 25.7 VOL% (42.0-52.0); Hemoglobin 7.9 GM/DL (14.0-18.0); Immature Granulocytes % 2.3 %; Immature Granulocytes Absolute 0.19 #; Lymphocytes # 0.8 10*3/uL (1.4-4.0); Lymphocytes % 10.1 % (21.2-54.2); Mean Corpuscular HGB Conc 30.7 GM/DL (32-36); Mean Corpuscular Volume 94.1 FL (87-102); Monocytes % 11.1 % (1.7-12.7); Neutrophils % 69.8 % (38.7-73.9); Platelet Count 162 T/CUMM (130-400); Red Blood Count 2.73 MC/CUMM (3.8-5.5); Red Cell Distribution Width 18.2 % (9.3-17.3); White Blood Count 8.2 T/CUMM (4-12)
[2020-07-16 06:43] LABS: Calcium 8.2 MG/DL (8.5-10.1); Osmolality,Calculated 288.1 MOS/KG (273-304); Potassium 5.2 MMOL/L (3.5-5.1)
[2020-07-16] MEDS: BUDESONIDE 0.25 MG/2 ML NEB RESP TX SCH ×2 (07:34→18:39)
[2020-07-16] MEDS: INSULIN LISPRO 100 UNIT/ML SUBCUT SCH ×3 (08:49→16:26)
[2020-07-16] MEDS: FERROUS SULFATE 325 MG TABLET PO SCH (09:34)
[2020-07-16] MEDS: DOCUSATE SODIUM 100 MG CAPSULE PO SCH ×2 (09:34→20:56)
[2020-07-16] MEDS: LINEZOLID INJ 600 MG in PREMIX 1 EACH IV SCH ×2 (09:34→22:17)
[2020-07-16] MEDS: MENTHOL/ZINC OXIDE OINT 71 GM JAR TOP SCH ×2 (09:34→20:56)
[2020-07-16] MEDS: SODIUM BICARBONATE 650 MG TABLET PO SCH ×2 (09:34→20:56)
[2020-07-16] MEDS: BENZONATATE 100 MG CAPSULE PO SCH ×3 (09:35→20:56)
[2020-07-16] MEDS: MAGNESIUM OXIDE 400 MG TABLET PO SCH (09:35)
[2020-07-16] MEDS: levETIRAcetam 250 MG TABLET PO SCH (09:35)
[2020-07-16] MEDS: PANTOPRAZOLE 40 MG TABLET PO SCH (09:35)
[2020-07-16] MEDS: ASCORBIC ACID 500 MG TABLET PO SCH ×2 (09:35→20:56)
[2020-07-16] MEDS ORDERED: FUROSEMIDE 40 MG/4 ML VIAL IV SCH (17:00)
[2020-07-16] MEDS: TAMSULOSIN 0.4 MG CAPSULE PO SCH (20:56)
[2020-07-16] MEDS: levETIRAcetam 500 MG TABLET PO SCH (20:56)
[2020-07-16] MEDS: SIMVASTATIN 40 MG TABLET PO SCH (20:56)
[2020-07-17] MEDS: ALBUTEROL/IPRATROPIUM 3 ML NEB RESP TX SCH ×4 (01:37→19:17)
[2020-07-17 05:57] LABS: Basophils # 0.1 10*3/uL (0.0-0.2); Basophils % 0.8 % (0.0-0.8); Eosinophils # 0.4 10*3/uL (0.0-0.87); Eosinophils % 5.4 % (0.00-10.9); Hematocrit 31.4 VOL% (42.0-52.0); Hemoglobin 10.2 GM/DL (14.0-18.0); Immature Granulocytes % 1.5 %; Immature Granulocytes Absolute 0.12 #; Lymphocytes # 0.7 10*3/uL (1.4-4.0); Lymphocytes % 8.5 % (21.2-54.2); Mean Corpuscular HGB Conc 32.5 GM/DL (32-36); Mean Corpuscular Volume 91.8 FL (87-102); Mean Platelet Volume 9.2 FL (9.6-12.0); Monocytes % 10.7 % (1.7-12.7); Neutrophils % 73.1 % (38.7-73.9); Platelet Count 137 T/CUMM (130-400); Red Blood Count 3.42 MC/CUMM (3.8-5.5)
[2020-07-17 06:27] LABS: Calcium 8.6 MG/DL (8.5-10.1); Osmolality,Calculated 285.2 MOS/KG (273-304); Potassium 5.2 MMOL/L (3.5-5.1)
[2020-07-17] MEDS: LEVOTHYROXINE 125 MCG TABLET PO SCH (06:31)
[2020-07-17 06:32] LABS: Band Neutrophils 2 % (0-10); Eosinophils 9 % (0-10); Hypochromasia 1+; Lymphocytes 13 % (20-55); Microcytosis 1+; Ovalocytes Slight; Platelet Estimate Adequate; Segmented Neutrophils 69 % (50-85); Total Cells Counted 100
[2020-07-17] MEDS: BUDESONIDE 0.25 MG/2 ML NEB RESP TX SCH ×2 (07:18→19:17)
[2020-07-17] MEDS: INSULIN LISPRO 100 UNIT/ML SUBCUT SCH ×3 (08:15→17:14)
[2020-07-17] MEDS: DOCUSATE SODIUM 100 MG CAPSULE PO SCH ×2 (09:22→21:50)
[2020-07-17] MEDS: levETIRAcetam 250 MG TABLET PO SCH (09:22)
[2020-07-17] MEDS: FERROUS SULFATE 325 MG TABLET PO SCH (09:22)
[2020-07-17] MEDS: SODIUM BICARBONATE 650 MG TABLET PO SCH ×2 (09:22→21:50)
[2020-07-17] MEDS: MAGNESIUM OXIDE 400 MG TABLET PO SCH (09:22)
[2020-07-17] MEDS: PANTOPRAZOLE 40 MG TABLET PO SCH (09:22)
[2020-07-17] MEDS: BENZONATATE 100 MG CAPSULE PO SCH ×3 (09:22→21:50)
[2020-07-17] MEDS: ASCORBIC ACID 500 MG TABLET PO SCH ×2 (09:22→21:50)
[2020-07-17] MEDS: MENTHOL/ZINC OXIDE OINT 71 GM JAR TOP SCH ×2 (09:23→21:50)
[2020-07-17] MEDS: LINEZOLID INJ 600 MG in PREMIX 1 EACH IV SCH ×2 (11:40→21:49)
[2020-07-17] MEDS: SIMVASTATIN 40 MG TABLET PO SCH (21:50)
[2020-07-17] MEDS: TAMSULOSIN 0.4 MG CAPSULE PO SCH (21:50)
[2020-07-17] MEDS: levETIRAcetam 500 MG TABLET PO SCH (21:50)
[2020-07-18] MEDS: ALBUTEROL/IPRATROPIUM 3 ML NEB RESP TX SCH ×4 (00:15→19:47)
[2020-07-18 04:34] LABS: Basophils # 0.1 10*3/uL (0.0-0.2); Basophils % 0.7 % (0.0-0.8); Eosinophils # 0.4 10*3/uL (0.0-0.87); Eosinophils % 5.3 % (0.00-10.9); Hematocrit 30.9 VOL% (42.0-52.0); Hemoglobin 9.7 GM/DL (14.0-18.0); Immature Granulocytes % 1.1 %; Immature Granulocytes Absolute 0.08 #; Lymphocytes # 0.7 10*3/uL (1.4-4.0); Lymphocytes % 9.5 % (21.2-54.2); Mean Corpuscular HGB Conc 31.4 GM/DL (32-36); Mean Corpuscular Volume 93.1 FL (87-102); Mean Platelet Volume 8.6 FL (9.6-12.0); Monocytes % 12.4 % (1.7-12.7); Platelet Count 109 T/CUMM (130-400); Red Blood Count 3.32 MC/CUMM (3.8-5.5); White Blood Count 7.6 T/CUMM (4-12)
[2020-07-18 04:54] LABS: Calcium 8.5 MG/DL (8.5-10.1); Osmolality,Calculated 283.1 MOS/KG (273-304); Potassium 5.5 MMOL/L (3.5-5.1)
[2020-07-18] MEDS: LEVOTHYROXINE 125 MCG TABLET PO SCH (05:55)
[2020-07-18] MEDS: BUDESONIDE 0.25 MG/2 ML NEB RESP TX SCH ×2 (07:10→19:48)
[2020-07-18] MEDS: INSULIN LISPRO 100 UNIT/ML SUBCUT SCH ×3 (07:54→16:22)
[2020-07-18] MEDS: SODIUM CHLORIDE 0.9% 1,000 ML IV SCH (08:43)
[2020-07-18] MEDS ORDERED: propofoL 200 MG/20 ML VIAL IV ONE (09:44)
[2020-07-18] MEDS ORDERED: LIDOCAINE 2% 5 ML VIAL ONE (09:44)
[2020-07-18] MEDS ORDERED: PHENYLEPHRINE 1 MG/10 ML SYRINGE IV ONE (09:59)
[2020-07-18] MEDS ORDERED: FLUCONAZOLE 200 MG TABLET PO ONE (10:10)
[2020-07-18] MEDS: LINEZOLID INJ 600 MG in PREMIX 1 EACH IV SCH ×2 (10:36→21:00)
[2020-07-18] MEDS: PANTOPRAZOLE 40 MG TABLET PO SCH ×2 (10:38→21:02)
[2020-07-18] MEDS: BENZONATATE 100 MG CAPSULE PO SCH ×3 (10:38→21:01)
[2020-07-18] MEDS: FERROUS SULFATE 325 MG TABLET PO SCH (10:38)
[2020-07-18] MEDS: ASCORBIC ACID 500 MG TABLET PO SCH ×2 (10:38→21:02)
[2020-07-18] MEDS: levETIRAcetam 250 MG TABLET PO SCH (10:38)
[2020-07-18] MEDS: SODIUM BICARBONATE 650 MG TABLET PO SCH ×2 (10:39→21:01)
[2020-07-18] MEDS: DOCUSATE SODIUM 100 MG CAPSULE PO SCH ×2 (10:39→21:01)
[2020-07-18] MEDS: MAGNESIUM OXIDE 400 MG TABLET PO SCH (10:39)
[2020-07-18] MEDS: MENTHOL/ZINC OXIDE OINT 71 GM JAR TOP SCH ×2 (10:39→21:01)
[2020-07-18] MEDS: ACETAMINOPHEN 325 MG TABLET PO PRN (16:22)
[2020-07-18] MEDS: levETIRAcetam 500 MG TABLET PO SCH (21:02)
[2020-07-18] MEDS: TAMSULOSIN 0.4 MG CAPSULE PO SCH (21:02)
[2020-07-18] MEDS: SIMVASTATIN 40 MG TABLET PO SCH (21:02)
[2020-07-19] MEDS: ALBUTEROL/IPRATROPIUM 3 ML NEB RESP TX SCH ×3 (01:42→13:47)
[2020-07-19] MEDS: LEVOTHYROXINE 125 MCG TABLET PO SCH (05:40)
[2020-07-19 06:09] LABS: Basophils # 0.1 10*3/uL (0.0-0.2); Eosinophils # 0.2 10*3/uL (0.0-0.87); Eosinophils % 3.2 % (0.00-10.9); Hematocrit 29.9 VOL% (42.0-52.0); Hemoglobin 9.6 GM/DL (14.0-18.0); Immature Granulocytes % 1.2 %; Immature Granulocytes Absolute 0.07 #; Lymphocytes # 0.6 10*3/uL (1.4-4.0); Lymphocytes % 9.6 % (21.2-54.2); Mean Corpuscular HGB Conc 32.1 GM/DL (32-36); Mean Corpuscular Volume 91.2 FL (87-102); Mean Platelet Volume 9.4 FL (9.6-12.0); Monocytes % 10.9 % (1.7-12.7); Neutrophils % 74.1 % (38.7-73.9); Platelet Count 107 T/CUMM (130-400); Red Blood Count 3.28 MC/CUMM (3.8-5.5); Red Cell Distribution Width 17.1 % (9.3-17.3); White Blood Count 5.9 T/CUMM (4-12)
[2020-07-19 06:27] LABS: Calcium 8.8 MG/DL (8.5-10.1); Osmolality,Calculated 279.2 MOS/KG (273-304); Potassium 5.3 MMOL/L (3.5-5.1)
[2020-07-19 06:51] LABS: Hypochromasia 1+; Microcytosis 1+
[2020-07-19 06:52] LABS: Ovalocytes Few; Platelet Estimate Decreased; Tear Drop Cells Slight
[2020-07-19] MEDS: BUDESONIDE 0.25 MG/2 ML NEB RESP TX SCH (07:27)
[2020-07-19] MEDS: INSULIN LISPRO 100 UNIT/ML SUBCUT SCH ×2 (09:37→13:02)
[2020-07-19] MEDS ORDERED: FLUCONAZOLE 100 MG TABLET PO ONE (10:00)
[2020-07-19] MEDS: SODIUM BICARBONATE 650 MG TABLET PO SCH (10:00)
[2020-07-19] MEDS: BENZONATATE 100 MG CAPSULE PO SCH (10:00)
[2020-07-19] MEDS: DOCUSATE SODIUM 100 MG CAPSULE PO SCH (10:00)
[2020-07-19] MEDS: PANTOPRAZOLE 40 MG TABLET PO SCH (10:00)
[2020-07-19] MEDS: FERROUS SULFATE 325 MG TABLET PO SCH (10:00)
[2020-07-19] MEDS: ASCORBIC ACID 500 MG TABLET PO SCH (10:00)
[2020-07-19] MEDS: MAGNESIUM OXIDE 400 MG TABLET PO SCH (10:01)
[2020-07-19] MEDS: levETIRAcetam 250 MG TABLET PO SCH (10:17)
[2020-07-19 12:25] VITALS: BP 131/59
[2020-07-19] MEDS: SODIUM CHLORIDE 0.9% 1,000 ML IV SCH (13:02)
[2020-07-19] MEDS: MENTHOL/ZINC OXIDE OINT 71 GM JAR TOP SCH (13:02)
[2020-07-19] MEDS: LINEZOLID INJ 600 MG in PREMIX 1 EACH IV SCH (13:02)
== END 2020-07-19 14:03 | disposition swing bed (61) | DRG 871 ==
LOC: EDBD → EDUNIT# → N.ED 04:00 → N.EDINP 05:53 → N.TELES 06:45
PROVIDERS: ADMIT Internal Medicine; ATTEND Internal Medicine

== ENCOUNTER 2020-08-04 16:19 | Inpatient (IN) ==
[2020-08-04] MEDS ORDERED: SODIUM CHLORIDE 0.9% 1,000 ML IV STA (16:50)
[2020-08-04 17:45] LABS: Basophils % 0.4 % (0.0-0.8); Eosinophils # 0.1 10*3/uL (0.0-0.87); Eosinophils % 0.7 % (0.00-10.9); Hematocrit 21.3 VOL% (42.0-52.0); Hemoglobin 6.9 GM/DL (14.0-18.0); Immature Granulocytes % 1.8 %; Immature Granulocytes Absolute 0.13 #; Lymphocytes # 0.6 10*3/uL (1.4-4.0); Lymphocytes % 8.2 % (21.2-54.2); Mean Corpuscular HGB Conc 32.4 GM/DL (32-36); Mean Corpuscular Volume 90.6 FL (87-102); Monocytes % 12.5 % (1.7-12.7); Neutrophils % 76.4 % (38.7-73.9); Platelet Count 123 T/CUMM (130-400); Red Blood Count 2.35 MC/CUMM (3.8-5.5); Red Cell Distribution Width 16.9 % (9.3-17.3); White Blood Count 7.2 T/CUMM (4-12)
[2020-08-04 17:57] LABS: INR 1.4; PT Patient Result 15.1 SECS (9.8-11.9)
[2020-08-04 17:58] LABS: Alanine Aminotransferase 18 U/L (16-61); Albumin 1.1 G/DL (3.4-5.0); Alkaline Phosphatase 117 U/L (45-117); Aspartate Amino Transferase 33 U/L (0-37); Bilirubin,Total < 0.39 MG/DL (0.2-1.0); Blood Urea Nitrogen 93 MG/DL (7-18); Calcium 6.5 MG/DL (8.5-10.1); Carbon Dioxide 17 MMOL/L (21-32); Estimated Glom Filtration Rate 28 ML/MIN; Glucose 212 MG/DL (74-106); Potassium 2.9 MMOL/L (3.5-5.1); Sodium 150 MMOL/L (136-145)
[2020-08-04 18:01] LABS: Bilirubin,Urine Negative (Negative); Blood, Urine Negative (Negative); Glucose,Urine (UA) Negative (Negative); Hyaline Casts,Urine 13 /LPF (0-3); Ketones,Urine 5 mg/dL (Negative); Mucus,Urine Occasional /LPF (Occasional); Nitrite,Urine Negative (Negative); Protein,Urine 30 MG/DL; RBC,Urine 1 /HPF (0-4); Urine Appearance CLEAR (Clear); Urine Color Yellow (Yellow); Urine Specific Gravity 1.015 (1.001-1.035); Urine Urobilinogen < 2.0 EU/DL (0.2-1.0); WBC,Urine 3 /HPF (0-6)
[2020-08-04 18:06] LABS: ABG Base Excess -3.9 MMOL/L (-2.5-2.5); ABG HCO3 17.9 MMOL/L (20-26); ABG PCO2 25.4 MM HG (35-48); ABG PH 7.466 (7.35-7.45); ABG PO2 150.1 MM HG (80-95); ABG TCO2 18.7 MMOL/L (23-27)
[2020-08-04 18:15] LABS: Anisocytosis 1+; Band Neutrophils 4 % (0-10); Hypochromasia 1+; Lymphocytes 2 % (20-55); Segmented Neutrophils 88 % (50-85); Total Cells Counted 100
[2020-08-04 18:16] LABS: Elliptocytes Few; Platelet Estimate Adequate; Schistocytes Few
[2020-08-04] MEDS ORDERED: PIPERACILLIN/TAZOBACTAM 3,375 MG in SODIUM CHLORIDE 0.9% 100 ML IV STA (18:17)
[2020-08-04] MEDS ORDERED: SODIUM CHLORIDE 0.9% 1,000 ML IV PRN (18:51)
[2020-08-04] MEDS ORDERED: ACETAMINOPHEN 325 MG TABLET PO PRN (19:14)
[2020-08-04] MEDS ORDERED: ONDANSETRON 4 MG/2 ML VIAL IV PRN (19:14)
[2020-08-04] MEDS ORDERED: POTASSIUM CHLORIDE INJ 40 MEQ in LACTATED RINGERS 1,000 ML IV SCH (20:05)
[2020-08-04] MEDS: POTASSIUM CHLORIDE INJ 40 MEQ in LACTATED RINGERS 1,000 ML IV SCH (21:53)
[2020-08-05] MEDS: POTASSIUM CHLORIDE INJ 40 MEQ in LACTATED RINGERS 1,000 ML IV SCH ×2 (03:10→16:53)
[2020-08-05] MEDS: PIPERACILLIN/TAZOBACTAM 3,375 MG in SODIUM CHLORIDE 0.9% 100 ML IV SCH ×3 (04:18→18:36)
[2020-08-05 06:29] LABS: Albumin 1.5 G/DL (3.4-5.0); Bilirubin,Total 0.9 MG/DL (0.2-1.0); Calcium 8.9 MG/DL (8.5-10.1); Osmolality,Calculated 334.7 MOS/KG (273-304); Potassium 4.4 MMOL/L (3.5-5.1)
[2020-08-05] MEDS ORDERED: GLUCAGON 1 MG VIAL SUBCUT PRN (08:32)
[2020-08-05] MEDS ORDERED: ALBUTEROL/IPRATROPIUM 3 ML NEB RESP TX SCH (08:32)
[2020-08-05] MEDS ORDERED: ALBUTEROL/IPRATROPIUM 3 ML NEB RESP TX PRN (08:39)
[2020-08-05 08:58] LABS: Basophils # 0.1 10*3/uL (0.0-0.2); Basophils % 0.7 % (0.0-0.8); Eosinophils # 0.1 10*3/uL (0.0-0.87); Eosinophils % 0.4 % (0.00-10.9); Hematocrit 34.9 VOL% (42.0-52.0); Hemoglobin 11.2 GM/DL (14.0-18.0); Immature Granulocytes % 3.1 %; Immature Granulocytes Absolute 0.37 #; Lymphocytes # 1.3 10*3/uL (1.4-4.0); Lymphocytes % 10.7 % (21.2-54.2); Mean Corpuscular HGB Conc 32.1 GM/DL (32-36); Mean Corpuscular Volume 90.6 FL (87-102); Mean Platelet Volume 10.7 FL (9.6-12.0); Monocytes % 12.3 % (1.7-12.7); NRBC # 0.03 10*3/uL; Neutrophils % 72.8 % (38.7-73.9); Platelet Count 175 T/CUMM (130-400); Red Blood Count 3.85 MC/CUMM (3.8-5.5); Red Cell Distribution Width 17.2 % (9.3-17.3); White Blood Count 11.9 T/CUMM (4-12)
[2020-08-05] MEDS ORDERED: PANTOPRAZOLE 40 MG VIAL IV SCH (09:00)
[2020-08-05] MEDS: MORPHINE 4 MG/1 ML VIAL IV PRN ×9 (09:21→22:06)
[2020-08-05] MEDS: ACETAMINOPHEN 650 MG SUPP RECTAL PRN (09:22)
[2020-08-05] MEDS: methylPREDNISolone SOD SUC 40 MG/1 ML VIAL IV SCH ×2 (09:26→18:36)
[2020-08-05] MEDS: ALBUTEROL/IPRATROPIUM 3 ML NEB RESP TX SCH ×4 (09:30→23:04)
[2020-08-06] MEDS: MORPHINE 4 MG/1 ML VIAL IV PRN ×23 (01:01→23:13)
[2020-08-06] MEDS: methylPREDNISolone SOD SUC 40 MG/1 ML VIAL IV SCH (02:33)
[2020-08-06] MEDS: PIPERACILLIN/TAZOBACTAM 3,375 MG in SODIUM CHLORIDE 0.9% 100 ML IV SCH (03:55)
[2020-08-06] MEDS: ALBUTEROL/IPRATROPIUM 3 ML NEB RESP TX SCH ×2 (03:59→07:20)
[2020-08-06] MEDS ORDERED: LORazepam 2 MG/1 ML VIAL IM ONE (05:51)
[2020-08-06] MEDS: LORazepam 2 MG/1 ML VIAL IV PRN ×9 (06:05→21:52)
[2020-08-06 06:09] LABS: Basophils # 0.1 10*3/uL (0.0-0.2); Basophils % 0.4 % (0.0-0.8); Hematocrit 35.1 VOL% (42.0-52.0); Hemoglobin 10.7 GM/DL (14.0-18.0); Immature Granulocytes % 4.7 %; Immature Granulocytes Absolute 0.88 #; Lymphocytes # 0.8 10*3/uL (1.4-4.0); Lymphocytes % 4.2 % (21.2-54.2); Mean Corpuscular HGB Conc 30.5 GM/DL (32-36); Mean Platelet Volume 10.9 FL (9.6-12.0); Monocytes % 5.2 % (1.7-12.7); NRBC # 0.02 10*3/uL; Neutrophils % 85.5 % (38.7-73.9); Platelet Count 221 T/CUMM (130-400); Red Blood Count 3.62 MC/CUMM (3.8-5.5); Red Cell Distribution Width 18.5 % (9.3-17.3); White Blood Count 18.5 T/CUMM (4-12)
[2020-08-06 06:33] LABS: Band Neutrophils 7 % (0-10); Hypochromasia 1+; Lymphocytes 7 % (20-55); Microcytosis Slight; Nucleated Red Blood Cells 1 (0-5); Platelet Estimate Adequate; Segmented Neutrophils 81 % (50-85); Total Cells Counted 100
[2020-08-06 06:34] LABS: Burr Cells Slight
[2020-08-07] MEDS: MORPHINE 4 MG/1 ML VIAL IV PRN ×15 (00:05→12:31)
[2020-08-07 01:08] VITALS: BP 94/46
[2020-08-07] MEDS: ACETAMINOPHEN 650 MG SUPP RECTAL PRN (01:27)
[2020-08-07] MEDS: LORazepam 2 MG/1 ML VIAL IV PRN ×5 (01:44→12:30)
[2020-08-07] MEDS ORDERED: fentaNYL 50 MCG/HR PATCH TRANSDERM SCH (09:00)
== END 2020-08-07 12:51 | disposition expired | DRG 951 ==
LOC: EDUNIT# → N.ED 16:19 → N.EDINP 19:13 → N.TELES 19:46
PROVIDERS: ADMIT Internal Medicine; ATTEND Internal Medicine